=== PATIENT | female | born 1940 | race Caucasian/White ===

== ENCOUNTER 2023-04-12 17:21 | Emergency (ER) | payer MEDICARE, BC, SELFPAY ==
[2023-04-12 17:27] VITALS: BP 152/83; PULSE 89; RESP 20; TEMP 36.4; O2SAT 99; BMI 18.9
[2023-04-12 17:39] LABS: Appearance Urine Clear (Clear); Bilirubin Urine Negative (Negative); Blood Urine Negative (Negative); Color Urine Yellow (Yellow); Glucose Urine Negative (Negative); Ketones Urine Negative (Negative); Leukocyte Esterase Urine Negative (Negative); Nitrite Urine Negative (Negative); Protein Urine Trace (Negative); Specific Gravity Urine >= 1.030 (1.000-1.030); Urobilinogen Urine 0.2 (0.2-1.0); pH Urine 5.5 (5.0-8.5)
[2023-04-12 17:50] LABS: RBC Urine 0-2 (0-2); WBC Urine 0-2 (0-5)
--- NOTE | 2023-04-12 17:59 | CRLHL7_ITS ---
For Patients: As a result of the Century Cures Act, medical imaging exams and procedure reports are released immediately into your electronic medical record. You may view this report before your referring provider. If you have questions, please contact your health care provider. INDICATION: CONFUSION HISTORY: Confusion. COMPARISON: 12/22/2016. 06/20/2014. 06/01/2014. TECHNIQUE: CT of the brain. No intravenous contrast. Coronal/sagittal reconstruction images. FINDINGS: There is diffuse cerebral and cerebellar volume loss. There is no acute intracranial hemorrhage. There is no shift of midline structures. There is no mass effect. No hyperdense MCA sign is seen. Basilar cisterns are patent. No abnormal extra-axial fluid collections. There is chronic sinusitis in the right maxillary antrum. Wall thickening of the right maxillary antrum is present. See series 3, image 8. Pterygoid plates are intact. There is no mastoid effusion. Arterial calcifications of the internal carotid artery. The skull base and calvaria appear intact. No retrobulbar hematoma or mass. IMPRESSION: 1. No acute intracranial hemorrhage, shift of midline structures, or mass effect. 2. Volume loss, which is expected given the patient`s age. 3. No hyperdense MCA sign. Dictated by Sherman Aquino MD @ 04/12/2023 7:04:01 PM Please note that all CT scans at this facility use dose modulation, iterative reconstruction, and/or weight-based dosing when appropriate to reduce radiation dose to as low as reasonably achievable. Dictated by: Sherman Aquino MD @ 04/12/2023 19:04:08 (Electronically Signed)
--- NOTE | 2023-04-12 18:06 | ED_ITS ---
HPI - General Adult General Time Seen by Provider: 18:00 Date Seen: 04/12/23 Chief complaint: Weakness Stated complaint: Possible UTI Time Seen by Provider: 04/12/23 17:21 Source: patient and family (Daughter) Mode of arrival: ambulatory Limitations: no limitations History of Present Illness HPI narrative: Patient is an 82-year-old female presenting to the emergency department for weakness and hip pain. Patient is here with her daughter. They state the patient recently moved into her assisted living facility 3 days ago. They note the patient has had 3 falls in the last month. Daughter states the patient is seemed to be weaker today and had difficulty getting up and down by herself. She has also noticed intermittent confusion for the past few weeks. They were concerned the patient might have a UTI. They have noticed the patient's increased frequency. Patient is denying any dysuria at this time. She does admit hip pain. They have seen the primary care provider for this hip pain and has been told it is bursitis. Without any states she will be here till the 22 of April be seen with her 20/04 but they just wanted to make sure nothing else is going on at this time. Patient denies chest pain, shortness of breath, abdominal pain, diarrhea, constipation, headache, vision changes, nausea, numbness. Related Data Allergies Allergy/AdvReac Type Severity Reaction Status Date / Time No Known Drug Allergies Allergy Verified 04/12/23 17:27 Review of Systems Status of ROS: Reports: 10 or more systems reviewed and unremarkable except as noted in History and below PFSH PFSH Social History Smoking Status: Never smoker Do you use any of these nicotine containing products: None Second hand tobacco smoke exposure: No How often do you have a drink containing alcohol: 4 or more times a week How many standard drinks containing alcohol do you have on a typical day: 1 or 2 How often do you have six or more drinks on one occasion: Never AUDIT-C Alcohol total score: 4 Non-prescribed substance use: denies use service: No Exam Narrative: Exam Narrative: Const: Well-nourished, Well-developed, in mild distress Eyes: PERRL, no conjunctival injection, and symmetrical lids ENMT: Atraumatic external nose and ears. Moist mucous membranes. Neck: Symmetric, trachea midline, No thyromegaly. CVS: RRR, No murmurs or gallops. Peripheral pulses 2+ and equal in all extremities RESP: Unlabored respiratory effort. Clear to auscultation bilaterally. GI: Nontender/Nondistended, No rebound or guarding. MSK:Extremities w/o deformity, Normal Active ROM. Tenderness to palpation over the greater trochanteric bursa Skin: Warm, Dry. No rashes or lesions. Neuro: Normal Muscle tone, No focal neurological deficits. Psych: Awake, Alert, & Oriented x3. Appropriate mood and affect. Const: Vital Signs, click to edit/add: Vital Signs - 24 hr 04/12/23 17:27 Temperature 97.6 F Pulse Rate [Pulse Oximeter] 89 Respiratory Rate 20 Blood Pressure [Ri ght Upper Arm] 152/83 H Pulse Oximetry 99 Oxygen Delivery Me thod Room Air Course Vital Signs Vital signs: Initial Vital Signs Temperature 97.6 F 04/12/23 17:27 Temperature Source Temporal Artery Scan 04/12/23 17:27 Pulse Rate 89 04/12/23 17:27 Pulse Rhythm Regular 04/12/23 17:27 Respiratory Rate 20 04/12/23 17:27 Blood Pressure 152/83 H 04/12/23 17:27 Blood Pressure Mean 106 H 04/12/23 17:27 Blood Pressure Position Supine 04/12/23 17:27 Pulse Oximetry 99 04/12/23 17:27 Oxygen Delivery Method Room Air 04/12/23 17:27 Vital Signs Temperature 97.6 F 04/12/23 17:27 Pulse Rate 89 04/12/23 17:27 Respiratory Rate 20 04/12/23 17:27 Blood Pressure 152/83 H 04/12/23 17:27 Pulse Oximetry 99 04/12/23 17:27 Oxygen Delivery Method Room Air 04/12/23 17:27 Temperature 97.6 F 04/12/23 17:27 Pulse Rate 89 04/12/23 17:27 Respiratory Rate 20 04/12/23 17:27 Blood Pressure 152/83 H 04/12/23 17:27 Pulse Oximetry 99 04/12/23 17:27 Oxygen Delivery Method Room Air 04/12/23 17:27 Medical Decision Making MDM Narrative Medical decision making narrative: Patient is in a 3rd femur signs in the emergency depart for weakness and left hip pain. She has had 3 falls in the past month. Her daughters notes gradual weakness of the past month also. She recently moved into assisted living facility 2 days ago. Her daughter is giving stain with their every day until the 22 of April. The patient has previously told she has bursitis in her hip. The daughters also noted intermittent confusion. They note they have a neurologist appointment scheduled for May 01. Concerning the patient's weakness we will do a full cardiac workup including CBC, CMP, troponin. Urinalysis ordered to check for signs of UTI. Patient has pain right over the greater trochanter which is most likely a sign of trochanteric bursitis. I spoke to the daughter about getting x-rays of the hips to confirm there is no fracture. The daughter does not want to wait for the x-rays to be read. At this point I find this to be reasonable considering pain is directly over the trochanter is most likely greater trochanteric bursitis and the patient is walking well so fracture is a very unlikely at this time. Will do a head CT. EKG showed no concerning abnormalities. Patient's lab work all returned concern no abnormal findings. Urinalysis shows no signs of a UTI. Patient's head CT shows age-related changes but no concerning abnormalities. Patient negative multiple times to go to the bathroom. She is urinating small amounts. We did a postvoid bladder scan which showed an empty urinary bladder. I spoke to the daughter about the which they would like to do at this time. Spoke to rule out possible admission for concern the patient will fall herself at home. The daughter states she feels comfortable taking the patient home at this time and will be with her for at least the next 10 days was able work with assisted living and make sure she is getting all the care that she requires. She states is patient is getting worse she will bring him back to the emergency department. This seems reasonable at this time. I believe the patient's weakness in urinary frequency is more likely related to neurological issues such as dementia and is gradual deconditioning with age. Lab Data Labs: Lab Results 04/12/23 04/12/23 Range/Units 17:30 18:10 WBC 6.53 (4.50-11.00) K/uL RBC 3.99 L (4.00-5.20) m/uL Hgb 13.0 (12.0-16.0) gm/dL Hct 39.3 (33.0-51.0) % MCV 99 (80-100) fL MCH 33 (26-34) pg MCHC 33 (32-36) gm/dL RDW Coeff of Mario 13.0 (11.5-15.5) % Plt Count 203 (140-440) K/uL Neut % (Auto) 56.1 (42.0-72.0) % Lymph % (Auto) 33.5 (20-44) % Coffee % (Auto) 8.7 (0.0-11.0) % Eos % (Auto) 0.9 (0.0-7.0) % Baso % (Auto) 0.6 (0.0-3.0) % Neut # (Auto) 3.66 (1.7-7.0) K/uL Lymph # (Auto) 2.19 (0.90-2.90) K/uL Coffee # (Auto) 0.60 (0.00-0.90) K/UL Eos # (Auto) 0.06 (0.00-0.50) K/uL Baso # (Auto) 0.04 (0.00-0.30) K/uL Abs Immat Gran (auto) 0.01 (0.00-0.30) K/uL Imm/Tot Granulo (auto) 0.2 % Sodium 137 (135-149) mmol/L Potassium 3.8 (3.6-5.1) mmol/L Chloride 105 (96-114) mmol/L Carbon Dioxide 24 (20-32) mmol/L BUN 22 (7-30) mg/dL Creatinine 1.1 (0.5-1.5) mg/dL Estimated Creat Clear 30.52 Estimated GFR 50 ml/min Glucose 90 (60-115) mg/dL Calcium 8.8 (8.4-10.6) mg/dL Total Bilirubin 0.8 (0.1-1.5) mg/dL AST 25 (12-35) U/L ALT 20 (4-35) U/L Alkaline Phosphatase 69 (40-150) U/L Troponin I < 0.01 L (0.01-0.04) ng/mL Total Protein 6.2 (6.0-8.3) g/dL Albumin 3.9 (3.3-5.0) g/dL Urine Color Yellow (Yellow) Urine Appearance Clear (Clear) Urine pH 5.5 (5.0-8.5) Ur Specific [place] >= 1.030 (1.000-1.030) Urine Protein Trace A (Negative) Urine Glucose (UA) Negative (Negative) Urine Ketones Negative (Negative) Urine Blood Negative (Negative) Urine Nitrite Negative (Negative) Urine Bilirubin Negative (Negative) Urine Urobilinogen 0.2 (0.2-1.0) Ur Leukocyte Esterase Negative (Negative) Urine RBC 0-2 (0-2) Urine WBC 0-2 (0-5) Ur Squamous Epith Cells None (None-Few) Urine Bacteria None (None) ECG Data Attestation: I personally reviewed and interpreted this ECG as follows: (Normal sinus rhythm the rate of 82 beats per minute, normal intervals, normal axis, no ST or T-wave abnormalities) Prior ECG tracings: not available for review Discharge Plan Discharge Clinical Impression: Weakness Greater trochanteric bursitis Qualifiers: Laterality: left Qualified Code(s): M70.62 - Trochanteric bursitis, left hip Patient Disposition: Home w/ Parent or Adult Condition: Stable Instructions: Hip Bursitis (ED), How to Transfer a Person Safely (DC) Additional Instructions: Follow-up with your daughters point being to have scheduled on May 01. Take ibuprofen and Tylenol for the patient's bursitis. There is no signs of infection at this time and is fully emptying her bladder. I believe her fixation on having to urinate is related to neurological decline with aging. Return for new or worsening symptoms. Follow Up/Referrals: Rani Barillas MD [Staff Physician] - Stand Alone Forms: [employer] Info Instructions
[2023-04-12 18:17] LABS: Basophils Absolute Auto 0.04 K/uL (0.00-0.30); Basophils Percent Auto 0.6 % (0.0-3.0); Eosinophils Absolute Auto 0.06 K/uL (0.00-0.50); Eosinophils Percent Auto 0.9 % (0.0-7.0); Hematocrit 39.3 % (33.0-51.0); Immature Granulocytes Abs Auto 0.01 K/uL (0.00-0.30); Immature Granulocytes Pct Auto 0.2 %; Lymphocytes Absolute Auto 2.19 K/uL (0.90-2.90); Lymphocytes Percent Auto 33.5 % (20-44); Mean Corpuscular HGB Conc 33 gm/dL (32-36); Mean Corpuscular Hemoglobin 33 pg (26-34); Mean Corpuscular Volume 99 fL (80-100); Monocytes Percent Auto 8.7 % (0.0-11.0); Neutrophils Absolute Auto 3.66 K/uL (1.7-7.0); Neutrophils Percent Auto 56.1 % (42.0-72.0); Platelet Count* 203 K/uL (140-440); Red Blood Count 3.99 m/uL (4.00-5.20); White Blood Count* 6.53 K/uL (4.50-11.00)
[2023-04-12 18:34] LABS: Slide Review Reflex No
[2023-04-12 18:36] LABS: Albumin* 3.9 g/dL (3.3-5.0); Chloride* 105 mmol/L (96-114); Potassium* 3.8 mmol/L (3.6-5.1); Sodium* 137 mmol/L (135-149)
[2023-04-12 18:39] LABS: Alanine Aminotransferase* 20 U/L (4-35); Alkaline Phosphatase* 69 U/L (40-150); Aspartate Amino Transferase* 25 U/L (12-35); Bilirubin Total* 0.8 mg/dL (0.1-1.5); Blood Urea Nitrogen* 22 mg/dL (7-30); Carbon Dioxide* 24 mmol/L (20-32); Creatinine* 1.1 mg/dL (0.5-1.5); Est. Creatinine Clearance* 30.52; Estimated Glomerular Filt Rate 50 ml/min; Glucose* 90 mg/dL (60-115); Total Protein* 6.2 g/dL (6.0-8.3)
[2023-04-12 18:40] LABS: Calcium* 8.8 mg/dL (8.4-10.6)
[2023-04-12 18:53] LABS: Troponin I* < 0.01 ng/mL (0.01-0.04)
== END 2023-04-12 19:37 | disposition home or self-care (01) ==
PROVIDERS: Emergency Provider Student in an Organized Health Care Education/Training Program; PCP Family Medicine
DX: S09.8XXA Other specified injuries of head, initial encounter (principal); S01.21XA Laceration without foreign body of nose, initial encounter; W18.30XA Fall on same level, unspecified, initial encounter; Y92.009 Unspecified place in unspecified non-institutional (private) residence as the place of occurrence of the external cause
CPT/HCPCS: 36415; 70450; 80053; 81001; 84484; 85025; 93005; 99283; 99284; 99285

== ENCOUNTER 2023-04-25 15:18 | Emergency (ER) | payer MEDICARE, BC, SELFPAY ==
[2023-04-25 15:25] VITALS: BP 128/75; PULSE 80; RESP 18; TEMP 36.6; O2SAT 98; BMI 18.9
--- NOTE | 2023-04-25 15:50 | CRLHL7_ITS ---
For Patients: As a result of the Cures Act, medical imaging exams and procedure reports are released immediately into your electronic medical record. You may view this report before your referring provider. If you have questions, please contact your health care provider. INDICATION: FALL. FACIAL LACERATIONS TECHNIQUE: CT maxillofacial without contrast. COMPARISON: None. FINDINGS: Dental amalgam streak artifact limits evaluation of adjacent structures. Facial bones: No fractures or bone lesions. Specifically the nasal bones, temporomandibular joints, maxilla and mandible appear intact. Orbits and globes: Unremarkable. Globes are intact. No sign of intraorbital hemorrhage or emphysema. Sinuses: Redemonstrated chronic mucosal thickening involving the right maxillary sinus with chronic periosteal thickening of the maxillary arenas. Hyperdense material within the right maxillary sinus is unchanged likely related to inspissated secretions and/or chronic fungal colonization. Mild chronic mucosal thickening of the ethmoid air cells. Soft tissues: Midline frontal scalp and paranasal soft tissue inflammation and subcutaneous emphysema. Small right pre maxillary soft tissue contusion/hematoma. IMPRESSION: 1. No evidence of facial fracture. 2. Midline frontal scalp and paranasal soft tissue inflammation and subcutaneous emphysema. Small right pre maxillary soft tissue contusion/hematoma. 3. Chronic right maxillary sinusitis. Please note that all CT scans at this facility use dose modulation, iterative reconstruction, and/or weight-based dosing when appropriate to reduce radiation dose to as low as reasonably achievable. Dictated by Donaldo Raymond MD @ 04/25/2023 5:45:11 PM (Electronically Signed)
--- NOTE | 2023-04-25 15:50 | CRLHL7_ITS ---
For Patients: As a result of the Century Cures Act, medical imaging exams and procedure reports are released immediately into your electronic medical record. You may view this report before your referring provider. If you have questions, please contact your health care provider. INDICATION: FALL. FACIAL LACERATIONS TECHNIQUE: Head CT without contrast. COMPARISON: CT head April 12, 2023 FINDINGS: CSF spaces: Mild global parenchymal volume loss with associated ex vacuo dilatation of the supratentorial ventricles. Brain parenchyma and extra-axial spaces: There are nonspecific low attenuation white matter changes consistent with chronic microvascular disease. No sign of intracranial hemorrhage, or midline shift. Skull base and calvarium: Redemonstrated chronic mucosal thickening involving the right maxillary sinus with chronic periosteal thickening of the maxillary arenas. Hyperdense material within the right maxillary sinus is unchanged likely related to inspissated secretions and/or chronic fungal colonization. The visualized orbits are grossly unremarkable. No skull fractures. Midline frontal scalp and paranasal soft tissue inflammation subcutaneous emphysema. Facial bones better visualized on same-day CT facial. IMPRESSION: No evidence of intracranial hemorrhage or skull fracture. Midline frontal/paranasal soft tissue contusion/inflammation is subcutaneous emphysema. Facial bones better visualized on same-day CT maxillofacial. Please note that all CT scans at this facility use dose modulation, iterative reconstruction, and/or weight-based dosing when appropriate to reduce radiation dose to as low as reasonably achievable. Dictated by Donaldo Raymond MD @ 04/25/2023 5:39:44 PM (Electronically Signed)
--- NOTE | 2023-04-25 15:50 | CRLHL7_ITS ---
For Patients: As a result of the Cures Act, medical imaging exams and procedure reports are released immediately into your electronic medical record. You may view this report before your referring provider. If you have questions, please contact your health care provider. INDICATION: Fall, neck pain TECHNIQUE: CT cervical spine without contrast. COMPARISON: None. FINDINGS: Vertebrae: Preserved cervical lordosis. Degenerative anterolisthesis of C6 on C7 and C7 on T1. There are no fractures or suspicious bony lesions. Discs and facet joints: There are diffuse degenerative changes in the disc spaces. Severe multilevel facet arthropathy most notably on the left resulting in multilevel neural femoral stenosis. Moderate severe left neural foraminal stenosis at C2-C3, severe left C3-C4, moderate bilateral C4-C5 a probable severe left at C5-C6. Positioning limits evaluation for neural foraminal stenosis at C6-C7. Moderate degenerative arthrosis at C1-C2. Extraspinal findings: Paraspinous soft tissues are unremarkable. IMPRESSION: 1. No sign of acute cervical spine fracture. 2. Multilevel degenerative spondylosis. Please note that all CT scans at this facility use dose modulation, iterative reconstruction, and/or weight-based dosing when appropriate to reduce radiation dose to as low as reasonably achievable. Dictated by Donaldo Raymond MD @ 04/25/2023 5:55:58 PM (Electronically Signed)
--- NOTE | 2023-04-25 16:11 | ED.HEATRA ---
HPI - Head Injury General Date Seen: 04/25/23 Chief complaint: Head Injury/Pain Stated complaint: fall face lac Time Seen by Provider: 04/25/23 15:24 Source: patient Mode of arrival: ambulatory Limitations: no limitations History of Present Illness HPI Narrative: This very nice lady presents here with a fall, she fell at home, he fell forward with her glasses on, hitting her face, she has no loss of consciousness, there is no vomiting, she is not on any anticoagulants, but feels slightly nauseous. He also has pain around her no nasal region, is also some mild pain in her neck. She initially told the nurse that she had pain in her low back, but when she gets up and moves around she thinks it might be just from sitting for so long. The fall occurred approximately an hour before being seen. This occurred at her place of residence. MD Complaint: head injury, head pain and fall Mechanism of Injury: fall Place: home Loss of Consciousness: no Location of injury: frontal Radiation: none Other Injuries: laceration Associated symptoms: denies other symptoms Related Data Home Medications Medication Instructions Recorded Confirmed No Known Home Medications 04/25/23 04/25/23 Allergies Allergy/AdvReac Type Severity Reaction Status Date / Time No Known Drug Allergies Allergy Verified 04/12/23 17:27 Review of Systems Status of ROS: Reports: 10 or more systems reviewed and unremarkable except as noted in History and below [facility] Social History Smoking Status: Never smoker Do you use any of these nicotine containing products: None Second hand tobacco smoke exposure: No How often do you have a drink containing alcohol: 4 or more times a week How many standard drinks containing alcohol do you have on a typical day: 1 or 2 How often do you have six or more drinks on one occasion: Never AUDIT-C Alcohol total score: 4 Non-prescribed substance use: denies use service: No Exam Narrative: Exam Narrative: On examination in room 3, she is seen with her granddaughter. Pupils are equal round reactive to light she tracks normally with absence of nystagmus, her TMs are normal, her range of motion of her neck is from 8-15 cm. Side flexion is 10?, rotation is approximately 20?. She has no palpable tenderness noted over C-spine, small laceration is noted of the bridge of her nose on the left side. There is some swelling of her nasal. No midfacial tenderness mouth opening is normal, cranial nerves 3-12 are normal, chest is clear heart sounds are normal, no palpable pain is noted over her L-spine or thoracic spine on palpation percussion. She moves all extremities independently and well, with a little less movement of her left upper extremity which she says is a chronic problem. She is able to stand for me. Const: Vital Signs, click to edit/add: Vital Signs - 24 hr 04/25/23 15:25 Temperature 97.9 F Pulse Rate [Right Pulse Oximeter] 80 Respiratory Rate 18 Blood Pressure [Ri ght Upper Arm] 128/75 Pulse Oximetry 98 Oxygen Delivery Me thod Room Air Documenting provider has reviewed patient's vital signs: yes Course Course Hospital Course: Patient's CTs were reviewed by myself showing no evidence of acute issues, there was some opacification her sinuses, which is appears to be a chronic issue. I was able to after the let, glue her 2 small nasal lacerations across the bridge of her nose and a little bit further down on the left side. This was uncomplicated with no complications. Her lower back was given her some problems, I offered to do an x-ray, but she decided than knee and she did not want to do this, but will return her see her primary if ongoing pain. Vital Signs Vital signs: Initial Vital Signs Temperature 97.9 F 04/25/23 15:25 Temperature Source Temporal Artery Scan 04/25/23 15:25 Pulse Rate 80 04/25/23 15:25 Respiratory Rate 18 04/25/23 15:25 Blood Pressure 128/75 04/25/23 15:25 Blood Pressure Mean 92 04/25/23 15:25 Blood Pressure Position Sitting 04/25/23 15:25 Pulse Oximetry 98 04/25/23 15:25 Oxygen Delivery Method Room Air 04/25/23 15:25 Vital Signs Temperature 97.9 F 04/25/23 15:25 Pulse Rate 80 04/25/23 15:25 Respiratory Rate 18 04/25/23 15:25 Blood Pressure 128/75 04/25/23 15:25 Pulse Oximetry 98 04/25/23 15:25 Oxygen Delivery Method Room Air 04/25/23 15:25 Temperature 97.9 F 04/25/23 15:25 Pulse Rate 80 04/25/23 15:25 Respiratory Rate 18 04/25/23 15:25 Blood Pressure 128/75 04/25/23 15:25 Pulse Oximetry 98 04/25/23 15:25 Oxygen Delivery Method Room Air 04/25/23 15:25 MDM - Head Injury MDM Narrative Medical decision making narrative: Life-threatening differential diagnosis is considered include: Subarachnoid hemorrhage, subdural hemorrhage, epidural hemorrhage. Other differential diagnosis considered include concussion, closed head injury, or neck fracture. Medical Records Attestation: I reviewed the patient's medical records. Imaging Data CT scan - head: Attestation: I have reviewed the pertinent imaging results. Radiologist's impression: Patient: EMMANUEL LERMA Facility: [facility] Site . Site : 1940 Study: CT Head -04/25/2023 4:24:32 PM Ordering Physician: Mervat Omer Final Report: INDICATION: FALL. FACIAL LACERATIONS TECHNIQUE: Head CT without contrast. COMPARISON: CT head April 12, 2023 FINDINGS: CSF spaces: Mild global parenchymal volume loss with associated ex vacuo dilatation of the supratentorial ventricles. Brain parenchyma and extra-axial spaces: There are nonspecific low attenuation white matter changes consistent with chronic microvascular disease. No sign of intracranial hemorrhage, or midline shift. Skull base and calvarium: Redemonstrated chronic mucosal thickening involving the right maxillary sinus with chronic periosteal thickening of the maxillary arenas. Hyperdense material within the right maxillary sinus is unchanged likely related to inspissated secretions and/or chronic fungal colonization. The visualized orbits are grossly unremarkable. No skull fractures. Midline frontal scalp and paranasal soft tissue inflammation subcutaneous emphysema. Facial bones better visualized on same-day CT facial. IMPRESSION: No evidence of intracranial hemorrhage or skull fracture. Midline frontal/paranasal soft tissue contusion/inflammation is subcutaneous emphysema. Facial bones better visualized on same-day CT maxillofacial. Please note that all CT scans at this facility use dose modulation, iterative reconstruction, and/or weight-based dosing when appropriate to reduce radiation dose to as low as reasonably achievable. Dictated by Donaldo Raymond MD @ 04/25/2023 5:39:44 PM (Electronic Signature) Patient: EMMANUEL LERMA Facility: [facility] . Site : 1940 Study: CT Facial WITHOUT-04/25/2023 4:23:15 PM Ordering Physician: Mervat Omer Final Report: INDICATION: FALL. FACIAL LACERATIONS TECHNIQUE: CT maxillofacial without contrast. COMPARISON: None. FINDINGS: Dental amalgam streak artifact limits evaluation of adjacent structures. Facial bones: No fractures or bone lesions. Specifically the nasal bones, temporomandibular joints, maxilla and mandible appear intact. Orbits and globes: Unremarkable. Globes are intact. No sign of intraorbital hemorrhage or emphysema. Sinuses: Redemonstrated chronic mucosal thickening involving the right maxillary sinus with chronic periosteal thickening of the maxillary arenas. Hyperdense material within the right maxillary sinus is unchanged likely related to inspissated secretions and/or chronic fungal colonization. Mild chronic mucosal thickening of the ethmoid air cells. Soft tissues: Midline frontal scalp and paranasal soft tissue inflammation and subcutaneous emphysema. Small right pre maxillary soft tissue contusion/hematoma. IMPRESSION: 1. No evidence of facial fracture. 2. Midline frontal scalp and paranasal soft tissue inflammation and subcutaneous emphysema. Small right pre maxillary soft tissue contusion/hematoma. 3. Chronic right maxillary sinusitis. Please note that all CT scans at this facility use dose modulation, iterative reconstruction, and/or weight-based dosing when appropriate to reduce radiation dose to as low as reasonably achievable. Dictated by Donaldo Raymond MD @ 04/25/2023 5:45:11 PM (Electronic Signature) Patient: EMMANUEL LERMA Facility: [facility] . Site : 1940 Study: CT Spine Cervical -04/25/2023 4:22:35 PM Ordering Physician: Mervat Omer Final Report: INDICATION: Fall, neck pain TECHNIQUE: CT cervical spine without contrast. COMPARISON: None. FINDINGS: Vertebrae: Preserved cervical lordosis. Degenerative anterolisthesis of C6 on C7 and C7 on T1. There are no fractures or suspicious bony lesions. Discs and facet joints: There are diffuse degenerative changes in the disc spaces. Severe multilevel facet arthropathy most notably on the left resulting in multilevel neural femoral stenosis. Moderate severe left neural foraminal stenosis at C2-C3, severe left C3-C4, moderate bilateral C4-C5 a probable severe left at C5-C6. Positioning limits evaluation for neural foraminal stenosis at C6-C7. Moderate degenerative arthrosis at C1-C2. Extraspinal findings: Paraspinous soft tissues are unremarkable. IMPRESSION: 1. No sign of acute cervical spine fracture. 2. Multilevel degenerative spondylosis. Please note that all CT scans at this facility use dose modulation, iterative reconstruction, and/or weight-based dosing when appropriate to reduce radiation dose to as low as reasonably achievable. Dictated by Donaldo Raymond MD @ 04/25/2023 5:55:58 PM (Electronic Signature) Discharge Plan Discharge Clinical Impression: Closed head injury, Facial laceration Patient Disposition: Home w/ Parent or Adult Condition: Stable Instructions: Laceration (DC), Head Injury (DC), Skin Adhesive Care (ED) Additional Instructions: Home rest Tylenol, please do not apply any antibiotic ointment to the glue areas of your laceration, return if nausea vomiting or other worrisome signs and symptoms with head injury occur. Tylenol 1 g up to 3 times a day will be very helpful. Activity Level: Light activity Prescriptions: No Action No Known Home Medications Follow Up/Referrals: Vivian Ko DO [Primary Care Provider] - Stand Alone Forms: [employer] Info Instructions
[2023-04-25] MEDS: LIDOCAINE/EPINEP/TETRACAINE 3 ML GEL..ML. TOPICAL (16:18)
[2023-04-25] MEDS: ACETAMINOPHEN 500 MG TABLET 1000 MG PO (16:18)
[2023-04-25 16:30] VITALS: BP 162/90; PULSE 82; RESP 16; O2SAT 100
[2023-04-25 17:00] VITALS: BP 140/77; PULSE 89; RESP 16; O2SAT 98
[2023-04-25 17:30] VITALS: BP 166/94; PULSE 89; RESP 16; O2SAT 99
[2023-04-25 18:00] VITALS: BP 158/83; PULSE 81; RESP 16; O2SAT 99
== END 2023-04-25 18:28 | disposition home or self-care (01) ==
PROVIDERS: Emergency Provider Family Medicine; PCP Family Medicine
DX: S01.21XA Laceration without foreign body of nose, initial encounter (principal); W01.10XA Fall on same level from slipping, tripping and stumbling with subsequent striking against unspecified object, initial encounter
CPT/HCPCS: 12011; 70450; 70486; 72125; 99284; 99285; A9270

== ENCOUNTER 2024-06-18 04:25 | Outpatient (CLI) | payer MEDICARE, SELFPAY ==
--- OUTSIDE RECORDS SUMMARY | 2024-06-19 08:41 | XMS_ITS | Clinical Summary ---
Author Organization [facility] Address [place], [place] [address] Care Team Providers Care Centrifugal Supervisor Name Role Phone Unavailable Primary Care Provider [...] Take 1 tablet by mouth. 08/22/2008 Active Zoknu-0-NKU-EPA-Fish Oil (FISH OIL) 1,000 mg (120 mg-180 [...] (09/22/2022): Added automatically from request for surgery [id number] Dementia without behavioral disturbance 12/28/19 21 Overview [...] stenosis of major cervical arteries. Done at [place]. Transient ischemic attack 06/01/2014 Overview (09/22/2022): 2014, takes plavix Unspecified hypothyroidism 10/06/2012 Sleep disorder 09/27/2010 Malignant neoplasm of breast (female), unspecifi ed site 11/12/2007 Overview (11/12/2007): left breast, infiltrating lobular carcinoma, ER +, [place] -, S/P left simple mastectomy 04/2007 on [...] PF (Flu Clinic Only) 07/10/2017 COVID-19 vaccine (Gen110 NTApos Therapy 30mcg/0.3mL) PF, MDV 12/03/2020,11/07/2020 DTaP 05/14/2006 Influenza [...] Documents on File Type Date Recorded Patient Mounter Expl anation POLST 04/15/2023
== END 2024-06-18 04:26 | disposition home or self-care (01) ==
LOC: AMB 06-19 08:40
PROVIDERS: PCP Family Medicine; Visit Provider Family Medicine
DX: S09.90XA Unspecified injury of head, initial encounter (principal); W18.30XA Fall on same level, unspecified, initial encounter; Y92.009 Unspecified place in unspecified non-institutional (private) residence as the place of occurrence of the external cause
CPT/HCPCS: A0425; A0427

== ENCOUNTER 2024-06-18 04:37 | Emergency (ER) | payer MEDICARE, SELFPAY ==
[2024-06-18 04:40] VITALS: BP 155/92; PULSE 81; RESP 20; TEMP 36.9; O2SAT 99
--- NOTE | 2024-06-18 04:51 | CRLHL7_ITS ---
For Patients: As a result of the Cures Act, medical imaging exams and procedure reports are released immediately into your electronic medical record. You may view this report before your referring provider. If you have questions, please contact your health care provider. INDICATION: Head injury, fall. COMPARISON: 04/25/2023 TECHNIQUE: CT of the brain / head without intravenous contrast. Multiplanar axial, coronal, and sagittal reformats were reconstructed. FINDINGS: Minimal patient motion artifact. No intracranial hemorrhage. Moderate parenchymal volume loss is similar. No acute or subacute cortically based infarct. Scattered white matter hypodensities may be related to chronic microvascular ischemia. No mass or mass effect. Mildly dilated ventricles appear similar to the previous exam. Largely due to ex vacuo dilatation in the setting of cerebral parenchymal volume loss. No skull fractures. No worrisome focal bone lesion. Chronic right maxillary sinusitis. Bilateral mastoid effusions. IMPRESSION: 1. No intracranial hemorrhage or acute traumatic findings. 2. Bilateral mastoid effusions. Please note that all CT scans at this facility use dose modulation, iterative reconstruction, and/or weight-based dosing when appropriate to reduce radiation dose to as low as reasonably achievable. Dictated by Alise Sebastian MD @ 06/18/2024 5:32:25 AM (Electronically Signed)
--- OUTSIDE RECORDS SUMMARY | 2024-06-18 05:02 | XMS_ITS | Clinical Summary ---
Author Organization [facility] Address [place], [place] [address] Care Team Providers Care Ballast Regulator Operator Name Role Phone Unavailable Primary Care Provider Unavailabl e Allergies Active Allergy Reactions Criticality Noted Date Comments Adhesive Hives 11/30/2014 Amoxicillin-Pot Clavulanate Rash Medium 04/23/20 11 Atorvastatin Myalgia 07/11/2015 Glucosamine Rash 04/14/2007 Latex Rash 11/30/2014 Oxycodone Nausea And Vomiting 05/07/2007 Sulfa (Sulfonamide Antibiotics) Hives,Edema 04/2007 Medications Medication Sig Dispensed Refills Start Date End Date Status acetaminophen (TYLENOL) 325 mg tablet Take 2 tablets by mouth. 02/28/2014 Active multivitamin (MVI) tablet Take 1 tablet by mouth. 08/22/2008 Active Pzhtm-0-WVZ-EPA-Fish Oil (FISH OIL) 1,000 mg (120 mg-180 mg) cap Take 1 capsule by mouth once daily. 02/22/2009 Active olopatadine (PATANOL) 0.1 % ophthalmic solutionIndications:I tchy eyes Place 1 Drop into both eyes 2 times daily. 5 mL 11 11/04/2021 Active rosuvastatin (CRESTOR) 5 mg tabletIndications:His tory of CVA (cerebrovascular accident) TAKE 1 TABLET BY MOUTH ONCE WEEKLY DIRECTED 12 Tablet 3 05/08/2022 Active clopidogreL (PLAVIX) 75 mg tabletIndications:His tory of CVA (cerebrovascular accident) Take 1 Tablet (75 mg) by mouth once daily. 90 Tablet 3 05/08/2022 Active WalkerIndications:Art hritis of right hip,Poor balance,At high risk for falls Walker with 2 wheels,seat,hand brakes for home use. Diagnosis: right hip arthritis, poor balance at risk of falls. For home use. Length of need: 99. 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, peripheral 09/22/2022 Overview (09/22/2022): numbness and tingling in both hands and feet Fatigue 02/07/2021 Personal history of other malignant neoplasm of kidney 02/07/2021 Personal history of malignant neoplasm of bladde r 01/11/2021 Overview (09/22/2022): Added automatically from request for surgery [id number] Dementia without behavioral disturbance 12/28/19 21 Overview (05/08/2022): SLUMS 12/2020 = 14 SLUMS 05/08/2022 = 6 Arthralgia 05/23/2019 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 Mri showing acute infarction of the left coronary, left posterior body of the caudate, and a small area of the posterolateral limb of the left internal capsule. 2. A few scattered foci of nonspecific T2 hyperintensity in the periventricular white matter likely related to small vessel ischemic disease. No stenosis in major cerebral arteries. Also no stenosis of major cervical arteries. Done at [place]. Transient ischemic attack 06/01/2014 Overview (09/22/2022): 2014, takes plavix Unspecified hypothyroidism 10/06/2012 Sleep disorder 09/27/2010 Malignant neoplasm of breast (female), unspecifi ed site 11/12/2007 Overview (11/12/2007): left breast, infiltrating lobular carcinoma, ER +, [place] -, S/P left simple mastectomy 04/2007 on arimidex Personal history of malignant neoplasm of kidney (V10.52) 11/12/2007 Overview (11/11/2013): right nephrectomy 1999. Discussed rare use of NSAID probably ok. Recommend sulindac if needs longer term Trinity Villaseñor M.D. 11/11/2013 8:12 AM Other and unspecified hyperlipidemia 11/12/2007 Benign neoplasm of colon 11/12/2007 Overview (11/12/2007): tubular adenoma 2002 Malignant neoplasm of bladder, part unspecified 03/05/2007 Immunizations Name Administration Dates Next Due AMB INFLUENZA IIV3 (AGE 65+ YRS) PF (Flu Clinic Only) 07/10/2017 COVID-19 vaccine ([employer] NTReading Rainbow 30mcg/0.3mL) PF, MDV 12/03/2020,11/07/2020 DTaP 05/14/2006 Influenza Virus, Unspecified 06/25/2018, 07/10/2017,08/25/2016,2015,08/19/2015,08/19/2015,07/23/2015,1 (Deferred: Patient Refused),07/13/2014,07/12/2013,09/01/20 12,06/28/2012,06/28/2012,07/29/2011,,07/16/2010,06/20/2009, 9,07/29/2007,07/29/2007,07/29/2004,06/28,07/11/2004 Influenza, High-dose Inactivated 019,07/23/2015,07/13/2014,2012 Influenza, High-dose Quadriv alent Inactivated 08/06/2021 Influenza, IIV3 (Age 6-35 mos) 07/29/2011 Influenza, IIV3 (Age >=3 years) 07/13/20 14,07/12/2013,09/01/2012,2010,07/16/2010,06/20/2009,07/29/2007,1 09/28/2003,07/11/2004 Influenza, IIV4 08/25/2016 Influenza, Inactivated AIIV4 (Age 65+ Years) Preserv Free 08/29/2022,06/08/2020 Influenza, Inactivated IIV3 (Age 65+ Years) Preserv Free 06/25/2018 Pneumococcal Poly,23-Valent (Pneumovax) 05/22/2008 Pneumococcal conj 13-Valent (Prevnar 13) 10/26/2014 TD, UNSPECIFIED 09/28/1999 Td (Age >=7 Years) 07/22/2012(Deferred: Patient Refused),09/28/1999 Tdap 02/04/2017,05/14/2006 Zoster (Zostavax-ZVL, live) 12/13/2008 Family History Medical History Relation Name Comments Psychiatric illness Father Cancer-breast Maternal Grandmother Stroke Mother Cancer-breast Paternal Grandmother Other Sister Relation Name Status Comments Father Maternal Grandmother Mother Paternal Grandmother Sister Alive Social History Tobacco Use Types Packs/Day Years Used Date Smoking Tobacco: Never Smokeless Tobacco: Never Tobacco Cessation:Counseling Given: Yes Alcohol Use Standard Drinks/Week Comments Yes 0 (1 standard drink = 0.6 oz pur e alcohol) 1 glass of wine daily PHQ-2 Answer Date Recorded PHQ-2 TOTAL SCORE 0 05/08/2022 Social Connections Answer Date Recorded Frequency of Communication with Friends and Fami ly Not on file 05/11/2023 Financial Resource Strain Answer Date R ecorded Difficulty of Paying Living Expenses 3 05/08/2022 Difficulty of Paying Living Expenses Not on file 05/08/2022 Food Insecurity Answer Date Recorded Worried About Running Out of Food in the Last Ye ar 1 05/08/2022 Transportation Needs Answer Date Record ed Lack of Transportation (Medical) 1 05/08/2022 Housing Stability Answer Date Recorded Unable to Pay for Housing in the Last Year 1 05/08/2022 Sex and Gender Information Value Date Recorded Sex Assigned at Not on file Gender Identity Not on file Sexual Orientation Not on file Obstetrics History Para Term AB IAB SAB Ectopic Multiple Livin g Live Births 2 2 Date Outcome GA Total Labor Labor/2nd/3rd Weight Sex Type Anes PTL Cassie A1 A5 Name Clin Last Filed Vital Signs Vital Sign Reading Time Taken Comments Blood Pressure 134/84 12/29/2022 10:37 AM CDT Pulse 91 12/29/2022 10:37 AM CDT Temperature 36.9 ??C (98.4 ??F) 12/27/2020 9:53 AM CD T Respiratory Rate - - Oxygen Saturation 98% 12/29/2022 10:37 AM CDT Inhaled Oxygen Concentration - - Weight 52.2 kg (115 lb) 12/29/2022 10:37 AM CDT Height 160 cm (5' 3) 05/08/2022 10:28 AM CDT Body Mass Index 20.37 05/08/2022 10:28 AM CDT Plan of Treatment Health Maintenance Due Date Last Done Comments RSV vaccine for adults or (1 - 1-dose 60+ series) 1999 Medicare Wellness for age 65+ 2004 Zoster (shingles) series for age 50+ (1 of 2) 02/07/2009 12/13/2008 BMI (ht and wt on same day) for age 18+ 05/08/2023 05/08/2022, 06/08/2020, 01/21/2019, Additional history exists COVID-19 vaccine series ( season) 2024 06/14/2021, 12/03/2020, 11/07/2020 Influenza for age 65+ 05/29/2024 08/29/2022 , 08/06/2021, 06/08/2020, Additional history exists Tetanus booster 02/04/2027 02/04/2017, 04/28, 09/28/1999, Additional history exists DEXA/DXA scan for age 65+ Completed 2010 (Completed outside of [facility]) Pneumococcal series for age 65+ Completed , 05/22/2008 Tdap Completed 02/04/2017, 05/14/2006 Advance Directives Documents on File Type Date Recorded Patient Carbon Brush Maker Expl anation POLST 04/15/2023
[2024-06-18 06:50] VITALS: BP 145/84; PULSE 79; RESP 20; TEMP 36.9; O2SAT 99
[2024-06-18 06:52] VITALS: BP 145/84; PULSE 79; RESP 20; TEMP 36.9
--- NOTE | 2024-06-19 11:34 | ED.GENADULT ---
HPI - General Adult General Chief complaint: Head Injury/Pain Stated complaint: fall Time Seen by Provider: 06/18/24 04:50 History of Present Illness HPI narrative: CC: Head Injury pt. had fall tonight, unwitnessed. swelling to back of head. unknown LOC. 83-year-old woman brought by EMS to the emergency department following a fall at dementia unit of [facility]. Concerns are of potential head injury. Marichuy does not offer useful information on interview. She hollers and complains of pain where ever touched. Unfortunately dementia leading to being generally disagreeable Related Data Home Medications ?Medication ?Instructions ?Recorded ?Confirmed escitalopram oxalate 5 mg tablet 5 mg PO DAILY 06/18/24 06/18/24 lorazepam 0.5 mg tablet 0.5 mg PO DAILY 06/18/24 06/18/24 Allergies Allergy/AdvReac Type Severity Reaction Status Date / Time adhesive tape AdvReac Verified 06/18/24 04:44 amoxicillin [From Augmentin] AdvReac Verified 06/18/24 04:44 atorvastatin AdvReac Verified 06/18/24 04:44 clavulanic acid AdvReac Verified 06/18/24 04:44 [From Augmentin] glucosamine AdvReac Verified 06/18/24 04:44 latex AdvReac Verified 06/18/24 04:44 oxycodone AdvReac Verified 06/18/24 04:44 Sulfa (Sulfonamide AdvReac Verified 06/18/24 04:44 Antibiotics) Review of Systems Status of ROS: Reports: 6 or more systems reviewed and unremarkable except as noted in History and below [facility] Medical History Hypothyroidism, unspecified ?E03.9 - Hypothyroidism, unspecified (ICD-10) Hyperlipidemia, unspecified ?E78.5 - Hyperlipidemia, unspecified (ICD-10) Malignant neoplasm of unspecified site of unspecified female breast ?C50.919 - Malignant neoplasm of unspecified site of unspecified female breast (ICD-10) Personal history of malignant neoplasm of bladder ?Z85.51 - Personal history of malignant neoplasm of bladder (ICD-10) Polyneuropathy, unspecified ?G62.9 - Polyneuropathy, unspecified (ICD-10) Diverticulosis of intestine, part unspecified, without perforation or abscess without bleeding ?K57.90 - Diverticulosis of intestine, part unspecified, without perforation or abscess without bleeding (ICD-10) Anxiety disorder, unspecified ?F41.9 - Anxiety disorder, unspecified (ICD-10) Personal history of transient ischemic attack (TIA), and cerebral infarction without residual deficits ?Z86.73 - Personal history of transient ischemic attack (TIA), and cerebral infarction without residual deficits (ICD-10) Unspecified dementia, unspecified severity, without behavioral disturbance, psychotic disturbance, mood disturbance, and anxiety ?F03.90 - Unspecified dementia, unspecified severity, without behavioral disturbance, psychotic disturbance, mood disturbance, and anxiety (ICD-10) Social History Smoking Status: Never smoker Do you use any of these nicotine containing products: None Second hand tobacco smoke exposure: No How often do you have a drink containing alcohol: 4 or more times a week How many standard drinks containing alcohol do you have on a typical day: 1 or 2 How often do you have six or more drinks on one occasion: Never AUDIT-C Alcohol total score: 4 Non-prescribed substance use: denies use service: No Exam Narrative: Exam Narrative: Argumentative. Does try to pinch care providers. Does not appear to be in distress other than does not appear to want cares. Is breathing easily. Head does have some prominence at the occiput left greater than right. I do not see stapling. Cranial nerves 2-12 to be intact. She is moving all extremities without difficulty. Checking hips she complains of pain however with good strength resists rotation. There is a light abrasion at the right knee though I am not convinced that this would have occurred in the last 24 hours. No extremity edema. Lungs are clear. Does not cry a specifically to pain to palpation of the back. Moderate kyphosis of the upper spine. Neck appears to be nontender. Abdomen is soft the. Yells out during this exam but not reliably to palpation. Heart in regular rate and rhythm. Const: Documenting provider has reviewed patient's vital signs: yes Course Vital Signs Vital signs: Initial Vital Signs Temperature 98.5 F 06/18/24 04:40 Temperature Source Temporal Artery Scan 06/18/24 04:40 Pulse Rate 81 06/18/24 04:40 Respiratory Rate 20 06/18/24 04:40 Blood Pressure 155/92 H 06/18/24 04:40 Blood Pressure Mean 113 H 06/18/24 04:40 Blood Pressure Position Supine 06/18/24 04:40 Pulse Oximetry 99 06/18/24 04:40 Oxygen Delivery Method Room Air 06/18/24 04:40 Vital Signs Temperature 98.5 F 06/18/24 04:40 Pulse Rate 81 06/18/24 04:40 Respiratory Rate 20 06/18/24 04:40 Blood Pressure 155/92 H 06/18/24 04:40 Pulse Oximetry 99 06/18/24 04:40 Oxygen Delivery Method Room Air 06/18/24 04:40 Temperature 98.5 F 06/18/24 06:52 Pulse Rate 79 06/18/24 06:52 Respiratory Rate 20 06/18/24 06:52 Blood Pressure 145/84 H 06/18/24 06:52 Pulse Oximetry 99 06/18/24 06:50 Oxygen Delivery Method Room Air 06/18/24 06:50 Medical Decision Making MDM Narrative Medical decision making narrative: Certainly can scan head. Is not anticoagulated. Particularly given that unable to or unwilling to communicate needs or pains clearly. Swelling on the back of the head might be in part physiologic but I think really hard to know. Does not appear to have sustained any other injuries. No fever or discrete pain complaints to warrant further evaluation at this point. She does not appear unwell other than chronic conditions. I did review head CT. Do not see any acute abnormality. TECHNIQUE: CT of the brain / head without intravenous contrast. Multiplanar axial, coronal, and sagittal reformats were reconstructed. FINDINGS: Minimal patient motion artifact. No intracranial hemorrhage. Moderate parenchymal volume loss is similar. No acute or subacute cortically based infarct. Scattered white matter hypodensities may be related to chronic microvascular ischemia. No mass or mass effect. Mildly dilated ventricles appear similar to the previous exam. Largely due to ex vacuo dilatation in the setting of cerebral parenchymal volume loss. No skull fractures. No worrisome focal bone lesion. Chronic right maxillary sinusitis. Bilateral mastoid effusions. IMPRESSION: 1. No intracranial hemorrhage or acute traumatic findings. 2. Bilateral mastoid effusions. No events during time of observation the emergency department. Sleeping/resting comfortably. Able to transition with usual level of ability per report prior to discharge. See patient discharge plan for further discuss Medical Records Medical records reviewed: Yes I reviewed the patient's medical records Discharge Plan Discharge Clinical Impression: Fall, Closed head injury Patient Disposition: Home w/ Parent or Adult Condition: Stable Additional Instructions: Monitor for unusual somnolence, severe headache, repeated vomiting. Prescriptions: No Action lorazepam 0.5 mg tablet 0.5 mg PO DAILY escitalopram oxalate 5 mg tablet 5 mg PO DAILY Follow Up/Referrals: Malathi Cross MD [Primary Care Provider] - Stand Alone Forms: [facility] Info Instructions
== END 2024-06-18 06:52 | disposition home or self-care (01) ==
PROVIDERS: Emergency Provider Family Medicine; PCP Family Medicine
DX: S01.91XA Laceration without foreign body of unspecified part of head, initial encounter (principal); W18.00XA Striking against unspecified object with subsequent fall, initial encounter; E04.1 Nontoxic single thyroid nodule
CPT/HCPCS: 12001; 70450; 99283; 99284

== ENCOUNTER 2024-06-18 06:45 | Outpatient (CLI) | payer MEDICARE, SELFPAY | END 2024-06-18 06:46 | disposition home or self-care (01) | LOC: AMB 06-19 08:46 | PROVIDERS: PCP Family Medicine; Visit Provider Family Medicine | DX: F03.90 Unspecified dementia, unspecified severity, without behavioral disturbance, psychotic disturbance, mood disturbance, and anxiety (principal) | CPT/HCPCS: A0425; A0428 ==

== ENCOUNTER 2024-06-22 08:10 | Outpatient (CLI) | payer MEDICARE, SELFPAY ==
--- OUTSIDE RECORDS SUMMARY | 2024-06-25 02:08 | XMS_ITS | Clinical Summary ---
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 08/22/2008 Active Trcln-5-TUI-EPA-Fish Oil (FISH OIL) 1,000 mg (120 mg-180 [...] (09/22/2022): Added automatically from request for surgery [id number] Dementia without behavioral disturbance 12/28/19 21 Overview [...] stenosis of major cervical arteries. Done at agency. 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
== END 2024-06-22 08:11 | disposition home or self-care (01) ==
LOC: AMB 06-25 02:06
PROVIDERS: PCP Family Medicine; Visit Provider Family Medicine
DX: S09.90XA Unspecified injury of head, initial encounter (principal); W18.30XA Fall on same level, unspecified, initial encounter; Y92.69 Other specified industrial and construction area as the place of occurrence of the external cause
CPT/HCPCS: A0425; A0427

== ENCOUNTER 2024-06-22 08:29 | Emergency (ER) | payer MEDICARE, SELFPAY ==
--- NOTE | 2024-06-22 08:43 | CRLHL7_ITS ---
For Patients: As a result of the Century Cures Act, medical imaging exams and procedure reports are released immediately into your electronic medical record. You may view this report before your referring provider. If you have questions, please contact your health care provider. INDICATION: Fall TECHNIQUE: CT head without contrast. COMPARISON: Head CT 06/18/2024 FINDINGS: CSF spaces: Within normal limits for age. Brain parenchyma: The pat-white differentiation is normal. No sign of mass, hemorrhage, or midline shift. Small low density in the deep white matter. Skull base and calvarium: Opacified right maxillary sinus with bony sclerosis. Bilateral mastoid fluid. The visualized orbits are grossly unremarkable. No skull fractures. Atherosclerosis. Left periorbital scalp laceration. IMPRESSION: 1. Left periorbital scalp laceration without evidence of calvarial fracture or intracranial bleed. 2. Nonspecific white matter disease, likely microangiopathy. 3. Chronic right maxillary sinusitis with bilateral mastoid effusions. Please note that all CT scans at this facility use dose modulation, iterative reconstruction, and/or weight-based dosing when appropriate to reduce radiation dose to as low as reasonably achievable. Dictated by Didier Landrum MD @ 06/22/2024 9:44:35 AM (Electronically Signed)
--- NOTE | 2024-06-22 08:43 | CRLHL7_ITS ---
For Patients: As a result of the Cures Act, medical imaging exams and procedure reports are released immediately into your electronic medical record. You may view this report before your referring provider. If you have questions, please contact your health care provider. INDICATION: Fall TECHNIQUE: CT cervical spine without contrast. COMPARISON: Cervical spine CT 04/25/2023 FINDINGS: Vertebrae: No evidence of cervical spine fracture. Sclerotic T1 lesion redemonstrated, no change. Discs and facet joints: Facet hypertrophy C2-3 without significant stenosis. Posterior osteophytes and facet hypertrophy causing moderate to severe foraminal stenosis on the left at C3-4. Facet hypertrophy and posterior osteophytes at C4-5 causing mild bilateral foraminal stenosis. Small posterior osteophytes C5-6 causing mild bilateral foraminal stenosis. Facet hypertrophy at C6-7 and C7-T1 without significant stenosis. 1-2 millimeter anterolisthesis. Extraspinal findings: Bilateral mastoid effusions. Right lobe thyroid hypodense nodule measuring 13 millimeters. Atherosclerosis. IMPRESSION: 1. Multilevel degenerative changes cervical spine without evidence of cervical spine fracture. 2. Hypodense right lobe thyroid nodule measuring 13 millimeters. This is incompletely included on the prior examination and size comparison can not be made. Suggest follow-up outpatient thyroid ultrasound for further characterization. Please note that all CT scans at this facility use dose modulation, iterative reconstruction, and/or weight-based dosing when appropriate to reduce radiation dose to as low as reasonably achievable. Dictated by Didier Landrum MD @ 06/22/2024 9:49:48 AM (Electronically Signed)
--- NOTE | 2024-06-22 08:44 | CRLHL7_ITS ---
For Patients: As a result of the Century Cures Act, medical imaging exams and procedure reports are released immediately into your electronic medical record. You may view this report before your referring provider. If you have questions, please contact your health care provider. Indication: Fall. Technique: One view(s) of the pelvis. Comparison: None available. Findings: Osseous demineralization. No displaced fracture is identified. Hip alignment is anatomic on AP view. No widening of the sacroiliac joints or pubic symphysis. Sacrum is partially obscured by bowel gas. Lower lumbar degenerative disc disease and facet arthropathy. Amorphous calcifications lateral to the right proximal femur measuring 3.2 cm in length, possibly degenerative versus hydroxyapatite deposition. No underlying osseous destruction. Impression: No displaced fracture identified. Dictated by Palmira Sanchez MD @ 06/22/2024 9:41:13 AM (Electronically Signed)
[2024-06-22 08:47] VITALS: BP 169/81; PULSE 67; RESP 16; TEMP 36.6; O2SAT 97; BMI 24.0
--- NOTE | 2024-06-22 08:47 | ED.GENADULT ---
HPI - General Adult General Chief complaint: Fall/Minor Trauma Stated complaint: Fall Time Seen by Provider: 06/22/24 08:43 History of Present Illness HPI narrative: Patient is an 83 year white female who lives in a memory care unit, she apparently was found on the ground she fell. I do not believe anyone witnessed her fall. She is brought in by EMS. She has got a significant history of dementia, is somewhat combative, is agitated easily. The patient has a small abrasion/laceration on her left temporal area. She has been in her usual mental state. She also moans and cries out whenever any part of her body is touched. Specifically however she has complained about her left hip area. When she has her hip moves she seems more agitated by my exam. The patient is moving all extremities. The family was consulted and wanted her ?checked out?. The patient is unable to convey any medical information. Her chart was reviewed. Related Data Home Medications ?Medication ?Instructions ?Recorded ?Confirmed escitalopram oxalate 5 mg tablet 5 mg PO DAILY 06/18/24 06/18/24 lorazepam 0.5 mg tablet 0.5 mg PO DAILY 06/18/24 06/18/24 Allergies Allergy/AdvReac Type Severity Reaction Status Date / Time adhesive tape AdvReac Verified 06/18/24 04:44 amoxicillin [From Augmentin] AdvReac Verified 06/18/24 04:44 atorvastatin AdvReac Verified 06/18/24 04:44 clavulanic acid AdvReac Verified 06/18/24 04:44 [From Augmentin] glucosamine AdvReac Verified 06/18/24 04:44 latex AdvReac Verified 06/18/24 04:44 oxycodone AdvReac Verified 06/18/24 04:44 Sulfa (Sulfonamide AdvReac Verified 06/18/24 04:44 Antibiotics) Review of Systems Status of ROS: Reports: unobtainable due to mental status PFSH PFS Medical History Hypothyroidism, unspecified ?E03.9 - Hypothyroidism, unspecified (ICD-10) Hyperlipidemia, unspecified ?E78.5 - Hyperlipidemia, unspecified (ICD-10) Malignant neoplasm of unspecified site of unspecified female breast ?C50.919 - Malignant neoplasm of unspecified site of unspecified female breast (ICD-10) Personal history of malignant neoplasm of bladder ?Z85.51 - Personal history of malignant neoplasm of bladder (ICD-10) Polyneuropathy, unspecified ?G62.9 - Polyneuropathy, unspecified (ICD-10) Diverticulosis of intestine, part unspecified, without perforation or abscess without bleeding ?K57.90 - Diverticulosis of intestine, part unspecified, without perforation or abscess without bleeding (ICD-10) Anxiety disorder, unspecified ?F41.9 - Anxiety disorder, unspecified (ICD-10) Personal history of transient ischemic attack (TIA), and cerebral infarction without residual deficits ?Z86.73 - Personal history of transient ischemic attack (TIA), and cerebral infarction without residual deficits (ICD-10) Unspecified dementia, unspecified severity, without behavioral disturbance, psychotic disturbance, mood disturbance, and anxiety ?F03.90 - Unspecified dementia, unspecified severity, without behavioral disturbance, psychotic disturbance, mood disturbance, and anxiety (ICD-10) Social History Smoking Status: Never smoker Do you use any of these nicotine containing products: None Second hand tobacco smoke exposure: No How often do you have a drink containing alcohol: 4 or more times a week How many standard drinks containing alcohol do you have on a typical day: 1 or 2 How often do you have six or more drinks on one occasion: Never AUDIT-C Alcohol total score: 4 Non-prescribed substance use: denies use service: No Exam Narrative: Exam Narrative: Objective: Patient is arousable, speaks in words, axis agitated with any examination. HEENT shows a small circular laceration just to the left temporal area. Does not appear deep, no palpable step-off. It is oozing blood slightly, but it is controlled with the pressure. No facial asymmetry noted Neck she appears to have no midline tenderness Back exam is unremarkable no bruising or ecchymoses Chest abdomen unremarkable Pulses regular Chest are cardiac exam shows a rate and rhythm regular without extremity with 2/6 systolic ejection murmur Abdomen benign Pelvis stable no palpable step-offs With flexion extension of either hip she cries out. Extremities show no gross deformity no bruising. Const: Vital Signs, click to edit/add: Vital Signs - 24 hr 06/22/24 08:47 Temperature 97.9 F Pulse Rate [Pulse Oximeter] 67 Respiratory Rate 16 Blood Pressure [Ri ght Upper Arm] 169/81 H Pulse Oximetry 97 Oxygen Delivery Me thod Room Air Course Vital Signs Vital signs: Initial Vital Signs Temperature 97.9 F 06/22/24 08:47 Temperature Source Temporal Artery Scan 06/22/24 08:47 Pulse Rate 67 06/22/24 08:47 Respiratory Rate 16 06/22/24 08:47 Blood Pressure 169/81 H 06/22/24 08:47 Blood Pressure Mean 110 H 06/22/24 08:47 Pulse Oximetry 97 06/22/24 08:47 Oxygen Delivery Method Room Air 06/22/24 08:47 Vital Signs Temperature 97.9 F 06/22/24 08:47 Pulse Rate 67 06/22/24 08:47 Respiratory Rate 16 06/22/24 08:47 Blood Pressure 169/81 H 06/22/24 08:47 Pulse Oximetry 97 06/22/24 08:47 Oxygen Delivery Method Room Air 06/22/24 08:47 Temperature 97.9 F 06/22/24 08:47 Pulse Rate 67 06/22/24 08:47 Respiratory Rate 16 06/22/24 08:47 Blood Pressure 169/81 H 06/22/24 08:47 Pulse Oximetry 97 06/22/24 08:47 Oxygen Delivery Method Room Air 06/22/24 08:47 Medications Administered Medications: Discontinued Medications Generic Name Dose Route Start Last Admin Trade Name Freq PRN Reason Stop Dose Admin Diphtheria/Tetanus/Acell Pertussis 0.5 ml 06/22/24 08:45 06/22/24 09:44 Tetanus/Diphth/Pertussis 0.5 Ml Syringe IM 06/22/24 08:46 Not Given .ONCE ONE Medical Decision Making MDM Narrative Medical decision making narrative: 83-year-old white female with severe dementia in a memory care unit with a fall. There is a left temporal last her radiation. This will either need Dermabond or sutures. Will get a head CT and neck CT as well as a pelvic x-ray and a CBC and Chem profile to start. I think it be reasonable to do these studies disposition pending their findings. Given this was acute episode it does not appear to be neurologic deficit or other cardiac issue. She has a regular rate and rhythm. She has no code status listed on her profile from [facility]. 9:27 a.m.: Procedure after sterile scrub with Hibiclens, the wound was injected 1% xylocaine without epinephrine, the small 3 cm in extremity 3 5 mm circular laceration her left temporal area was closed with 3-0 simple out that sutures good skin edge approximation good hemostasis this was done x2 sutures. Suture removal should be in 7 days. She is up-to-date on tetanus so this will not be given. Addendum 9:50 a.m.: The patient had her laceration closed with 2 sutures, her head CT shows chronic changes, neck CT chronic changes no acute findings, she does have some thyroid abnormality that could be followed up with an ultrasound. Patient this time by my read has a negative pelvic x-ray. At this time I think we can allow her to go back home continue her medications, light activity that is normal for her, and diet as tolerated. Would recommend follow-up ultrasound of her thyroid at the discretion of her primary care provider. Lab Data Labs: Lab Results 06/22/24 Range/Units 09:30 WBC 5.98 (4.50-11.00) K/uL RBC 4.28 (4.00-5.20) m/uL Hgb 13.7 (12.0-16.0) gm/dL Hct 42.3 (33.0-51.0) % MCV 99 (80-100) fL MCH 32 (26-34) pg MCHC 32 (32-36) gm/dL RDW Coeff of Mario 13.4 (11.5-15.5) % Plt Count 139 L (140-440) K/uL Neut % (Auto) 51.7 (42.0-72.0) % Lymph % (Auto) 37.1 (20-44) % [place] % (Auto) 8.5 (0.0-11.0) % Eos % (Auto) 1.7 (0.0-7.0) % Baso % (Auto) 0.8 (0.0-3.0) % Neut # (Auto) 3.09 (1.7-7.0) K/uL Lymph # (Auto) 2.22 (0.90-2.90) K/uL [place] # (Auto) 0.50 (0.00-0.90) K/UL Eos # (Auto) 0.10 (0.00-0.50) K/uL Baso # (Auto) 0.05 (0.00-0.30) K/uL Abs Immat Gran (auto) 0.01 (0.00-0.30) K/uL Imm/Tot Granulo (auto) 0.2 % Sodium 141 (135-149) mmol/L Potassium 4.6 (3.6-5.1) mmol/L Chloride 108 (96-114) mmol/L Carbon Dioxide 29 (20-32) mmol/L Anion Gap 4 L (7-15) mEq/L BUN 22 (7-30) mg/dL Creatinine 1.1 (0.5-1.5) mg/dL Estimated Creat Clear 32.88 Estimated GFR 50 ml/min Glucose 88 (60-115) mg/dL Calcium 9.3 (8.4-10.6) mg/dL Discharge Plan Discharge Clinical Impression: Fall, Laceration, Thyroid nodule Patient Disposition: Home w/ Parent or Adult Condition: Improved Additional Instructions: Watch for redness at the laceration site, suture removal in 1 week. Resume usual medications. Would recommend discussing code status with family. Thyroid nodule could be followed up with an ultrasound per Radiology if desired by the primary care provider in Family. Activity Level: Light activity Discharge Diet: Regular Prescriptions: No Action lorazepam 0.5 mg tablet 0.5 mg PO DAILY escitalopram oxalate 5 mg tablet 5 mg PO DAILY Follow Up/Referrals: Malathi Cross MD [Primary Care Provider] - Stand Alone Forms: MyHealth Info Instructions
--- OUTSIDE RECORDS SUMMARY | 2024-06-22 08:48 | XMS_ITS | Clinical Summary ---
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 08/22/2008 Active Cazeq-6-HNS-EPA-Fish Oil (FISH OIL) 1,000 mg (120 mg-180 [...] (09/22/2022): Added automatically from request for surgery [id number] Dementia without behavioral disturbance 12/28/19 21 Overview [...] stenosis of major cervical arteries. Done at [facility]. Transient ischemic attack 06/01/2014 Overview (09/22/2022): 2014, takes plavix Unspecified hypothyroidism 10/06/2012 Sleep disorder 09/27/2010 Malignant neoplasm of breast (female), unspecifi ed site 11/12/2007 Overview (11/12/2007): left breast, infiltrating lobular carcinoma, ER +, [place] -, S/P left simple mastectomy 04/2007 on [...] PF (Flu Clinic Only) 07/10/2017 COVID-19 vaccine (Nautal NTOdysii 30mcg/0.3mL) PF, MDV 12/03/2020,11/07/2020 DTaP 05/14/2006 Influenza [...] Health Maintenance Due Date Last Done Comments Medicare Wellness for age 65+ 2004 Zoster (shingles) series for age 50+ (1 of 2) 02/07/2009 12/13/2008 RSV vaccine for adults or (1 - 1-dose 75+ series) 2014 BMI (ht and wt on same day) [...] Documents on File Type Date Recorded 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
[2024-06-22 09:43] LABS: Basophils Absolute Auto 0.05 K/uL (0.00-0.30); Basophils Percent Auto 0.8 % (0.0-3.0); Eosinophils Percent Auto 1.7 % (0.0-7.0); Hematocrit 42.3 % (33.0-51.0); Hemoglobin* 13.7 gm/dL (12.0-16.0); Immature Granulocytes Abs Auto 0.01 K/uL (0.00-0.30); Immature Granulocytes Pct Auto 0.2 %; Lymphocytes Absolute Auto 2.22 K/uL (0.90-2.90); Lymphocytes Percent Auto 37.1 % (20-44); Mean Corpuscular HGB Conc 32 gm/dL (32-36); Mean Corpuscular Hemoglobin 32 pg (26-34); Mean Corpuscular Volume 99 fL (80-100); Monocytes Percent Auto 8.5 % (0.0-11.0); Neutrophils Absolute Auto 3.09 K/uL (1.7-7.0); Neutrophils Percent Auto 51.7 % (42.0-72.0); Platelet Count* 139 K/uL (140-440); RDW Coefficient of Variation % 13.4 % (11.5-15.5); Red Blood Count 4.28 m/uL (4.00-5.20); White Blood Count* 5.98 K/uL (4.50-11.00)
[2024-06-22 09:44] LABS: Slide Review Reflex No
[2024-06-22 09:48] LABS: Chloride* 108 mmol/L (96-114)
[2024-06-22 09:49] LABS: Potassium* 4.6 mmol/L (3.6-5.1); Sodium* 141 mmol/L (135-149)
[2024-06-22 09:52] LABS: Anion Gap 4 mEq/L (7-15); Blood Urea Nitrogen* 22 mg/dL (7-30); Carbon Dioxide* 29 mmol/L (20-32); Creatinine* 1.1 mg/dL (0.5-1.5); Est. Creatinine Clearance* 32.88; Estimated Glomerular Filt Rate 50 ml/min; Glucose* 88 mg/dL (60-115)
[2024-06-22 09:53] LABS: Calcium* 9.3 mg/dL (8.4-10.6)
--- NOTE | 2024-06-22 09:58 | ED.NURSE ---
Daughter and POA contacted by telephone and review of results and discharge information where given. Patient to discharge back to facility via EMS.
--- NOTE | 2024-06-22 10:20 | ED.NURSE ---
RN to RN report called into [facility] and results and follow up care discussed.
--- NOTE | 2024-06-22 12:46 | ED.NURSE ---
Patient assisted to eat applesauce, kimberly crackers and juice.
== END 2024-06-22 12:45 | disposition home or self-care (01) ==
PROVIDERS: Emergency Provider Family Medicine; PCP Family Medicine
DX: S01.91XA Laceration without foreign body of unspecified part of head, initial encounter (principal); W01.10XA Fall on same level from slipping, tripping and stumbling with subsequent striking against unspecified object, initial encounter
CPT/HCPCS: 12002; 36415; 70450; 72125; 72170; 80048; 85025; 99284

== ENCOUNTER 2024-06-22 12:28 | Outpatient (CLI) | payer MEDICARE, SELFPAY ==
--- OUTSIDE RECORDS SUMMARY | 2024-07-06 12:41 | XMS_ITS | Clinical Summary ---
Author Organization [facility] Address [place], [place] [address] Care Team Providers Care Drum Tester Name Role Phone Unavailable Primary Care Provider [...] Take 1 tablet by mouth. 08/22/2008 Active Bxehw-5-JWA-EPA-Fish Oil (FISH OIL) 1,000 mg (120 mg-180 [...] (09/22/2022): Added automatically from request for surgery [id number] Dementia without behavioral disturbance 12/28/19 21 Overview [...] stenosis of major cervical arteries. Done at [facility]. 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
== END 2024-06-22 12:29 | disposition home or self-care (01) ==
LOC: AMB 07-06 12:40
PROVIDERS: PCP Family Medicine; Visit Provider Family Medicine
DX: F03.90 Unspecified dementia, unspecified severity, without behavioral disturbance, psychotic disturbance, mood disturbance, and anxiety (principal)
CPT/HCPCS: A0425; A0428

== ENCOUNTER 2024-07-12 02:14 | Outpatient (CLI) | payer MEDICARE, SELFPAY ==
--- OUTSIDE RECORDS SUMMARY | 2024-07-16 07:08 | XMS_ITS | Clinical Summary ---
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 08/22/2008 Active Gpjcd-9-TEW-EPA-Fish Oil (FISH OIL) 1,000 mg (120 mg-180 [...] (09/22/2022): Added automatically from request for surgery [id number] Dementia without behavioral disturbance 12/28/19 21 Overview [...] stenosis of major cervical arteries. Done at [facility]. 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
== END 2024-07-12 02:15 | disposition home or self-care (01) ==
LOC: AMB 07-16 07:06
PROVIDERS: PCP Family Medicine; Visit Provider Emergency Medicine
DX: M25.552 Pain in left hip (principal)
CPT/HCPCS: A0425; A0427

== ENCOUNTER 2024-07-12 02:41 | Emergency (ER) | payer MEDICARE, SELFPAY ==
--- NOTE | 2024-07-12 02:46 | CRLHL7_ITS ---
For Patients: As a result of the Century Cures Act, medical imaging exams and procedure reports are released immediately into your electronic medical record. You may view this report before your referring provider. If you have questions, please contact your health care provider. INDICATION: Trauma and pain. TECHNIQUE: Pelvis 1 view. COMPARISON: 06/22/2024. FINDINGS: No acute fractures or malalignment. Mild bilateral hip degenerative changes. Amorphous calcification adjacent to the proximal right femur, unchanged. IMPRESSION: No acute osseous abnormality. Dictated by Abelardo Parson MD @ 07/12/2024 3:10:24 AM (Electronically Signed)
[2024-07-12 02:50] VITALS: BP 165/91; PULSE 83; RESP 16; TEMP 36.2; O2SAT 94
[2024-07-12] MEDS: HYDROmorphone 0.5 mg/0.5 ml inj IVP (02:51)
--- NOTE | 2024-07-12 03:00 | CRLHL7_ITS ---
For Patients: As a result of the Century Cures Act, medical imaging exams and procedure reports are released immediately into your electronic medical record. You may view this report before your referring provider. If you have questions, please contact your health care provider. INDICATION: Trauma and pain. TECHNIQUE: CT left hip without contrast. COMPARISON: Pelvic radiograph 07/12/2024. FINDINGS: Decreased bone mineralization. No acute fracture or dislocation. Mild degenerative changes of the left hip, SI joint, and pubic symphysis. Left lateral hip hematoma measuring approximally 5.1 x 5.0 x 6.6 cm. Colonic diverticulosis. Scattered atherosclerotic calcifications. IMPRESSION: 1. No acute osseous abnormality. 2. Left lateral hip hematoma. Please note that all CT scans at this facility use dose modulation, iterative reconstruction, and/or weight-based dosing when appropriate to reduce radiation dose to as low as reasonably achievable. Dictated by Abelardo Parosn MD @ 07/12/2024 3:45:37 AM (Electronically Signed)
--- NOTE | 2024-07-12 03:22 | ED.GENADULT ---
HPI - General Adult General Date Seen: 07/12/24 Chief complaint: Extremity Pain/Injury, Lower Stated complaint: Hip dislocation Time Seen by Provider: 07/12/24 02:46 Source: EMS, RN notes reviewed and old records reviewed Mode of arrival: EMS Limitations: other History of Present Illness HPI narrative: Patient is an 83-year-old woman brought in by EMS from [facility]. Review of prior records shows that she was seen here after a fall on June 22, at that time had complained or seem to be having pain in her left hip, had a laceration on her forehead which was repaired. She does have pretty severe dementia, is not able to provide any meaningful history, and on the was noted to seem to have pain wherever she was touched. Circumstances are similar tonight. EMS reported a hip dislocation, but also noted that she does not have a history of hip replacement and there was no reported trauma. According to staff at [facility] they had checked on her at some point during the day, she had been sitting on her couch. She was checked at 11:00 p.m. and reportedly was okay but when they went in at 3:00 a.m. to check on her and get her to the bathroom she seemed to be having pain in her hip. Medics felt that it looked dislocated. No reported falls today. Medications reviewed, she is not anticoagulated. Related Data Home Medications ?Medication ?Instructions ?Recorded ?Confirmed escitalopram oxalate 5 mg tablet 5 mg PO DAILY 06/18/24 06/18/24 lorazepam 0.5 mg tablet 0.5 mg PO DAILY 06/18/24 06/18/24 Allergies Allergy/AdvReac Type Severity Reaction Status Date / Time adhesive tape AdvReac Verified 06/18/24 04:44 amoxicillin [From Augmentin] AdvReac Verified 06/18/24 04:44 atorvastatin AdvReac Verified 06/18/24 04:44 clavulanic acid AdvReac Verified 06/18/24 04:44 [From Augmentin] glucosamine AdvReac Verified 06/18/24 04:44 latex AdvReac Verified 06/18/24 04:44 oxycodone AdvReac Verified 06/18/24 04:44 Sulfa (Sulfonamide AdvReac Verified 06/18/24 04:44 Antibiotics) Review of Systems Status of ROS: Reports: unobtainable due to medical condition PFSH PFSH Medical History Hypothyroidism, unspecified ?E03.9 - Hypothyroidism, unspecified (ICD-10) Hyperlipidemia, unspecified ?E78.5 - Hyperlipidemia, unspecified (ICD-10) Malignant neoplasm of unspecified site of unspecified female breast ?C50.919 - Malignant neoplasm of unspecified site of unspecified female breast (ICD-10) Personal history of malignant neoplasm of bladder ?Z85.51 - Personal history of malignant neoplasm of bladder (ICD-10) Polyneuropathy, unspecified ?G62.9 - Polyneuropathy, unspecified (ICD-10) Diverticulosis of intestine, part unspecified, without perforation or abscess without bleeding ?K57.90 - Diverticulosis of intestine, part unspecified, without perforation or abscess without bleeding (ICD-10) Anxiety disorder, unspecified ?F41.9 - Anxiety disorder, unspecified (ICD-10) Personal history of transient ischemic attack (TIA), and cerebral infarction without residual deficits ?Z86.73 - Personal history of transient ischemic attack (TIA), and cerebral infarction without residual deficits (ICD-10) Unspecified dementia, unspecified severity, without behavioral disturbance, psychotic disturbance, mood disturbance, and anxiety ?F03.90 - Unspecified dementia, unspecified severity, without behavioral disturbance, psychotic disturbance, mood disturbance, and anxiety (ICD-10) Social History Smoking Status: Never smoker Do you use any of these nicotine containing products: None Second hand tobacco smoke exposure: No How often do you have a drink containing alcohol: 4 or more times a week How many standard drinks containing alcohol do you have on a typical day: 1 or 2 How often do you have six or more drinks on one occasion: Never AUDIT-C Alcohol total score: 4 Non-prescribed substance use: denies use service: No Exam Narrative: Exam Narrative: Vital signs as noted above. In general, an alert, nontoxic elderly woman. Head: Normocephalic, atraumatic. Eyes: Pupils are equal reactive. Extraocular movements are full. Conjunctivae are normal. ENT: Mucous membranes are moist. Throat is normal. Neck: Supple without lymphadenopathy. Heart: Regular rate and rhythm. No murmur or rub. Lungs: Clear bilaterally. No increased work of breathing, crackles or wheezes. Abdomen: Soft and nontender. No organomegaly. Extremities: Both hips are slightly flexed, but neither is abducted or adducted, nor rotated. She has pain diffusely through all extremities. There is a hematoma noted on the left lateral hip. This is also tender to palpation. No significant surrounding erythema. Not able to feel dorsalis pedis pulses in either foot. Neurologic: Patient is alert, agitated, reaches out to grab and hit occasionally. Does not follow commands. Affect: Agitated. Skin: Warm and dry. Well perfused. Const: Vital Signs, click to edit/add: Vital Signs - 24 hr 07/12/24 02:50 07/12/24 04:00 Temperature 97.2 F L Pulse Rate 76 Pulse Rate [Pulse Oximeter] 83 Respiratory Rate 16 16 Blood Pressure 115/81 Blood Pressure [Le ft Upper Arm] 165/91 H Pulse Oximetry 94 99 Oxygen Delivery Me thod Room Air Documenting provider has reviewed patient's vital signs: yes Course Course ED Course: Patient received 50 mcg of fentanyl per EMS. I gave her an additional 0.5 mg of Dilaudid anticipating x-rays. We did a pelvis x-ray which by my review was negative, no evidence of dislocation or obvious fracture. I am going to CT her hip just to make sure, it does not sound like she has had any trauma today but given that she is not able to provide any history will simply make sure there is not an occult fracture. I suspect that her pain is coming from this hematoma on the lateral hip. She slept comfortably while in the emergency department. CT scan by my review showed hematoma over the left hip but no evidence of fracture. Final radiology read as follows below. Patient: EMMANUEL LERMA Facility: [facility] . Site : 1940 Study: XRay-Pelvis -07/12/2024 3:07:03 AM Ordering Physician: Rodrigo Avina Final Report: INDICATION: Trauma and pain. TECHNIQUE: Pelvis 1 view. COMPARISON: 06/22/2024. FINDINGS: No acute fractures or malalignment. Mild bilateral hip degenerative changes. Amorphous calcification adjacent to the proximal right femur, unchanged. IMPRESSION: No acute osseous abnormality. Patient: EMMANUEL LERMA Facility: [facility] . Site : 1940 Study: CT-Hip Left W/O-07/12/2024 3:32:21 AM Ordering Physician: Rodrigo Avina Final Report: INDICATION: Trauma and pain. TECHNIQUE: CT left hip without contrast. COMPARISON: Pelvic radiograph 07/12/2024. FINDINGS: Decreased bone mineralization. No acute fracture or dislocation. Mild degenerative changes of the left hip, SI joint, and pubic symphysis. Left lateral hip hematoma measuring approximally 5.1 x 5.0 x 6.6 cm. Colonic diverticulosis. Scattered atherosclerotic calcifications. IMPRESSION: 1. No acute osseous abnormality. 2. Left lateral hip hematoma. Please note that all CT scans at this facility use dose modulation, iterative reconstruction, and/or weight-based dosing when appropriate to reduce radiation dose to as low as reasonably achievable. Dictated by Abelardo Parson MD @ 07/12/2024 3:45:37 AM I think she can be safely discharged home, ice, Tylenol. No evidence of bony injury tonight, hematoma should gradually improve over the next couple of weeks but if worsening or develops redness fever etcetera should be seen again. Vital Signs Vital signs: Initial Vital Signs Temperature 97.2 F L 07/12/24 02:50 Temperature Source Temporal Artery Scan 07/12/24 02:50 Pulse Rate 83 07/12/24 02:50 Pulse Rhythm Regular 07/12/24 02:50 Respiratory Rate 16 07/12/24 02:50 Blood Pressure 165/91 H 07/12/24 02:50 Blood Pressure Mean 115 H 07/12/24 02:50 Blood Pressure Position Semi-Fowlers 07/12/24 02:50 Pulse Oximetry 94 07/12/24 02:50 Oxygen Delivery Method Room Air 07/12/24 02:50 Vital Signs Temperature 97.2 F L 07/12/24 02:50 Pulse Rate 83 07/12/24 02:50 Respiratory Rate 16 07/12/24 02:50 Blood Pressure 165/91 H 07/12/24 02:50 Pulse Oximetry 94 07/12/24 02:50 Oxygen Delivery Method Room Air 07/12/24 02:50 Temperature 97.2 F L 07/12/24 02:50 Pulse Rate 76 07/12/24 04:00 Respiratory Rate 16 07/12/24 04:00 Blood Pressure 115/81 07/12/24 04:00 Pulse Oximetry 99 07/12/24 04:00 Oxygen Delivery Method Room Air 07/12/24 02:50 Medications Administered Medications: Discontinued Medications Generic Name Dose Route Start Last Admin Trade Name Jenny PRN Reason Stop Dose Admin Hydromorphone HCl 0.5 mg 07/12/24 02:47 07/12/24 02:51 Hydromorphone 0.5 Mg/0.5 Ml Inj IVP 07/12/24 02:48 0.5 mg ONCE ONE Administration Discharge Plan Discharge Clinical Impression: Hematoma of left hip Patient Disposition: Xfer SNF Condition: Stable Instructions: Hip Contusion (ED) Additional Instructions: Tylenol 1000 mg 3 times daily as needed. Ice may be helpful as well. No evidence of fracture or dislocation on CT scan today. Prescriptions: No Action lorazepam 0.5 mg tablet 0.5 mg PO DAILY escitalopram oxalate 5 mg tablet 5 mg PO DAILY Stand Alone Forms: SupplyFramee[employer] Info Instructions
[2024-07-12 04:00] VITALS: BP 115/81; PULSE 76; RESP 16; O2SAT 99
--- OUTSIDE RECORDS SUMMARY | 2024-07-12 04:16 | XMS_ITS | Clinical Summary ---
Author Organization [facility] Address [place], [place] [address] Care Team Providers Care Configuration Management Analyst Name Role Phone Unavailable Primary Care [...] Take 1 tablet by mouth. 08/22/2008 Active Ylisk-0-PZY-EPA-Fish Oil (FISH OIL) 1,000 mg (120 mg-180 [...] (09/22/2022): Added automatically from request for surgery [id number] Dementia without behavioral disturbance 12/28/19 21 Overview [...] stenosis of major cervical arteries. Done at [facility]. 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
== END 2024-07-21 11:55 ==
PROVIDERS: Emergency Provider Emergency Medicine; PCP Family Medicine
DX: S70.02XA Contusion of left hip, initial encounter (principal)
CPT/HCPCS: 72170; 73700; 96374; 99284; J1171

== ENCOUNTER 2024-07-12 04:59 | Outpatient (CLI) | payer MEDICARE, SELFPAY ==
--- OUTSIDE RECORDS SUMMARY | 2024-07-28 13:09 | XMS_ITS | Clinical Summary ---
Author Organization [facility] Address [place], [place] [address] Care Team Providers Care Can Line Operator Name Role Phone Unavailable Primary Care [...] Take 1 tablet by mouth. 08/22/2008 Active Npfrd-2-LDW-EPA-Fish Oil (FISH OIL) 1,000 mg (120 mg-180 [...] (09/22/2022): Added automatically from request for surgery [id number] Dementia without behavioral disturbance 12/28/19 21 Overview [...] stenosis of major cervical arteries. Done at [place]. Transient ischemic attack 06/01/2014 Overview (09/22/2022): 2014, takes plavix Unspecified hypothyroidism 10/06/2012 Sleep disorder 09/27/2010 Malignant neoplasm of breast (female), unspecifi ed site 11/12/2007 Overview (11/12/2007): left breast, infiltrating lobular carcinoma, ER +, [place] -, S/P left simple mastectomy 04/2007 on [...] PF (Flu Clinic Only) 07/10/2017 COVID-19 vaccine ([facility] [employer] 30mcg/0.3mL) PF, MDV 12/03/2020,11/07/2020 DTaP 05/14/2006 Influenza [...] Documents on File Type Date Recorded Patient Nutrition Director Expl anation POLST 04/15/2023
== END 2024-07-12 05:00 | disposition home or self-care (01) ==
LOC: AMB 07-28 13:04
PROVIDERS: PCP Family Medicine; Visit Provider Family Medicine
DX: F03.90 Unspecified dementia, unspecified severity, without behavioral disturbance, psychotic disturbance, mood disturbance, and anxiety (principal)
CPT/HCPCS: A0425; A0428

== ENCOUNTER 2024-07-22 21:18 | Outpatient (CLI) | payer MEDICARE, SELFPAY ==
--- OUTSIDE RECORDS SUMMARY | 2024-07-27 19:11 | XMS_ITS | Clinical Summary ---
Author Organization [facility] Address [place], [place] [address] Care Team Providers Care Rehabilitation Tech Name Role Phone Unavailable Primary Care Provider [...] Take 1 tablet by mouth. 08/22/2008 Active Ohawz-3-ZCJ-EPA-Fish Oil (FISH OIL) 1,000 mg (120 mg-180 [...] (09/22/2022): Added automatically from request for surgery [id number] Dementia without behavioral disturbance 12/28/19 21 Overview [...] stenosis of major cervical arteries. Done at [place]. 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
== END 2024-07-22 21:19 | disposition home or self-care (01) ==
PROVIDERS: PCP Family Medicine; Visit Provider Family Medicine
DX: F03.90 Unspecified dementia, unspecified severity, without behavioral disturbance, psychotic disturbance, mood disturbance, and anxiety (principal)
CPT/HCPCS: A0998

== ENCOUNTER 2024-07-22 23:03 | Outpatient (CLI) | payer MEDICARE, SELFPAY | END 2024-07-22 23:04 | disposition home or self-care (01) | LOC: AMB 07-27 19:17 | PROVIDERS: PCP Family Medicine; Visit Provider Family Medicine | DX: S09.90XA Unspecified injury of head, initial encounter (principal); W18.30XA Fall on same level, unspecified, initial encounter; Y92.10 Unspecified residential institution as the place of occurrence of the external cause | CPT/HCPCS: A0425; A0427 ==

== ENCOUNTER 2024-07-22 23:16 | Emergency (ER) | payer MEDICARE, SELFPAY ==
[2024-07-22 23:29] VITALS: BP 154/76; PULSE 76; RESP 16; TEMP 36.4; O2SAT 99
--- NOTE | 2024-07-23 00:14 | ED_ITS ---
HPI - General Adult General Chief complaint: Fall/Minor Trauma Stated complaint: fall Time Seen by Provider: 07/23/24 00:00 Source: patient and EMS History of Present Illness HPI narrative: 83-year-old female with significant dementia, currently DNR code status and reported that she is planning to initiate hospice care presents to the emergency department with her 2nd fall of the evening. The same EMS crew attended both falls. Both were described as mechanical in nature. Call was canceled after they were able to easily assist patient up and there were no signs of injuries after the 1st fall. For the 2nd fall, it was obvious that the patient had been rearranging the furniture in her assisted living apartment by herself. Rationale is unclear. She was found down by staff, slight bleeding from the back of the head noted. Was not complaining of other areas of injury. She does not take any anticoagulants. No recent fever or illness reported. She does come with paperwork from her assisted living facility. Stable vital signs over the last few days. No recent changes in medications. She does take lorazepam but this is not new. She has an ongoing hematoma of the left outer hip area. Recent CT has been performed. No other areas of reported injury from the EMS team. Past medical history is most notable for the dementia. This is the only condition that continues to be managed. Continues to use Lexapro, lorazepam, Tylenol and oxycodone. Nonsmoker. Family contact information reviewed. ROS from patient is unreliable, reports no concerns. This was also reported to EMS. EMS only noting the mild bleeding to the back of the head to us. Related Data Home Medications ?Medication ?Instructions ?Recorded ?Confirmed escitalopram oxalate 5 mg tablet 5 mg PO DAILY 06/18/24 06/18/24 lorazepam 0.5 mg tablet 0.5 mg PO DAILY 06/18/24 06/18/24 Allergies Allergy/AdvReac Type Severity Reaction Status Date / Time adhesive tape AdvReac Verified 06/18/24 04:44 amoxicillin (From Augmentin) AdvReac Verified 06/18/24 04:44 atorvastatin AdvReac Verified 06/18/24 04:44 clavulanic acid (From AdvReac Verified 06/18/24 04:44 Augmentin) glucosamine AdvReac Verified 06/18/24 04:44 latex AdvReac Verified 06/18/24 04:44 oxycodone AdvReac Verified 06/18/24 04:44 Sulfa (Sulfonamide AdvReac Verified 06/18/24 04:44 Antibiotics) [facility] Medical History Hypothyroidism, unspecified ?E03.9 - Hypothyroidism, unspecified (ICD-10) Hyperlipidemia, unspecified ?E78.5 - Hyperlipidemia, unspecified (ICD-10) Malignant neoplasm of unspecified site of unspecified female breast ?C50.919 - Malignant neoplasm of unspecified site of unspecified female breast (ICD-10) Personal history of malignant neoplasm of bladder ?Z85.51 - Personal history of malignant neoplasm of bladder (ICD-10) Polyneuropathy, unspecified ?G62.9 - Polyneuropathy, unspecified (ICD-10) Diverticulosis of intestine, part unspecified, without perforation or abscess without bleeding ?K57.90 - Diverticulosis of intestine, part unspecified, without perforation or abscess without bleeding (ICD-10) Anxiety disorder, unspecified ?F41.9 - Anxiety disorder, unspecified (ICD-10) Personal history of transient ischemic attack (TIA), and cerebral infarction without residual deficits ?Z86.73 - Personal history of transient ischemic attack (TIA), and cerebral infarction without residual deficits (ICD-10) Unspecified dementia, unspecified severity, without behavioral disturbance, psychotic disturbance, mood disturbance, and anxiety ?F03.90 - Unspecified dementia, unspecified severity, without behavioral disturbance, psychotic disturbance, mood disturbance, and anxiety (ICD-10) Social History Smoking Status: Never smoker Do you use any of these nicotine containing products: None Second hand tobacco smoke exposure: No How often do you have a drink containing alcohol: 4 or more times a week How many standard drinks containing alcohol do you have on a typical day: 1 or 2 How often do you have six or more drinks on one occasion: Never AUDIT-C Alcohol total score: 4 Non-prescribed substance use: denies use service: No Exam Const: Vital Signs, click to edit/add: Vital Signs - 24 hr 07/22/24 23:29 Temperature 97.6 F Pulse Rate [Pulse Oximeter] 76 Respiratory Rate 16 Blood Pressure [Ri ght Upper Arm] 154/76 H Pulse Oximetry 99 Oxygen Delivery Me thod Room Air Documenting provider has reviewed patient's vital signs: yes Other: Calm, resting in the bed. Arouses to voice. Will answer simple questions but does not necessarily answer reliably. Oriented to person only. HENMT: Common normals: external nose normal Nose: external nose normal Mouth: oral and palatal mucosa normal Throat: posterior oropharynx normal Other: Small subcentimeter laceration, epidermal depth to the right occipital area. Very slight oozing. No dental injury. Normal tongue. Eye: Common normals: PERRL and EOMs intact bilaterally General eye: normal appearance of both eyes Pupil: PERRL Neck & C-Spine: Common normals: full ROM and no lymphadenopathy Cervical spine: cervical ROM normal; no cervical spine tenderness, no step off deformity and no paracervical muscle tenderness Chest: Common normals: inspection of chest normal and palpation of chest normal Resp: Common normals: normal respiratory effort, no use of accessory muscles and clear to auscultation bilaterally Effort & inspection: able to speak in complete sentences Auscultation: clear to auscultation bilaterally Cardio: Common normals: regular rate, regular rhythm, S1 normal heart sound, S2 normal heart sound and no murmurs Rate: regular rate Rhythm: regular rhythm Heart sounds: S1 normal and S2 normal GI: Common normals: Normal to inspection, nondistended, normoactive bowel sounds present, soft to palpation and no hepatosplenomegaly Palpation: soft and no hepatosplenomegaly Back & Pelvis: Common normals: thoracic and lumbar spine normal to inspection Extremity: Other: Faint bruise to the right ventral ankle area. Old hematoma to the left outer hip area. Pelvis and bony palpation is nontender. Knees normal in appearance with no point tenderness as are ankles and feet. Neuro: Common normals: moves all extremities Psych: Insight: limited Judgement: limited Skin: Narrative: Small laceration on the right occiput, stable appearing known hematoma to left outer hip. Mild bruise to right ankle with no evidence of fracture or deformity. Course Course ED Course: 83-year-old female with fall in assisted living facility, mechanical seeming. Will obtain EKG to ensure no cardiac process. Her vitals are stable. She is not exhibiting any significant signs of pain to palpation. Will remove C- collar. Will give Tylenol and see if she can ambulate. I do not think ext ensive blood work will be beneficial. Since there was no hypoxia, tachypnea, reported pain with palpation or other abnormalities, I do not think skeletal survey, chest x-ray go be beneficial for her. Blood work is unlikely to change the course of treatment in this debilitated, demented patient. The nursing team will clean up the cut on the back of her head. Will plan for Dermabond and attempted ambulation. Reevaluation(s) Time of Reevaluation #1: 02:06 Reevaluation #1: Unfortunately due to other acuity in the ED, we were not able to reassess patient for quite some time. She is sitting upright, will bear weight on her legs. Yells and shouts frequently. She has hit and pinched several staff members. Ultimately, she did allow me to further inspect the wound on her right occiput. It shows a 1.5 cm barely oozing horizontal laceration that she keeps touching and messing with. Procedure: Analisa position. Area was cleansed with soapy tap water, patted dry. Laceration examined with no evidence of foreign body. Into knots, hair on either side of the laceration was pulled taut, twisted and Dermabond was applied. This resulted in good hemostasis and reapproximation. Two total throws. Tolerated as well as any other procedure which was poorly. But calm and resting afterwards. No option for 48 hours. No dressing needed. Okay to use Tylenol as needed for discomfort. Patient adamantly refused EKG, blood work. Additional harm would have come to staff to force this further. Since patient has the energy to fight, yell and attempt to ambulate away, it is thought that she really does meet criteria for stability especially in her advanced dementia condition when she has circling towards hospice status. Any information gained from this is unlikely to benefit her medically or improve her quality of life. Decision was made to withdraw further testing. She will be discharged back to her assisted living. I do agree based on our interaction that she is appropriate for hospice care and comfort treatment only. Vital Signs Vital signs: Initial Vital Signs Temperature 97.6 F 07/22/24 23:29 Temperature Source Temporal Artery Scan 07/22/24 23:29 Pulse Rate 76 07/22/24 23:29 Pulse Rhythm Regular 07/22/24 23:29 Respiratory Rate 16 07/22/24 23:29 Blood Pressure 154/76 H 07/22/24 23:29 Blood Pressure Mean 102 07/22/24 23:29 Blood Pressure Position Supine 07/22/24 23:29 Pulse Oximetry 99 07/22/24 23:29 Oxygen Delivery Method Room Air 07/22/24 23:29 Vital Signs Temperature 97.6 F 07/22/24 23:29 Pulse Rate 76 07/22/24 23:29 Respiratory Rate 16 07/22/24 23:29 Blood Pressure 154/76 H 07/22/24 23:29 Pulse Oximetry 99 07/22/24 23:29 Oxygen Delivery Method Room Air 07/22/24 23:29 Temperature 97.6 F 07/22/24 23:29 Pulse Rate 76 07/22/24 23:29 Respiratory Rate 16 07/22/24 23:29 Blood Pressure 154/76 H 07/22/24 23:29 Pulse Oximetry 99 07/22/24 23:29 Oxygen Delivery Method Room Air 07/22/24 23:29 Medications Administered Medications: Generic Name Dose Route Start Last Admin Trade Name Freq PRN Reason Stop Dose Admin Acetaminophen 650 mg 07/23/24 00:11 07/23/24 01:07 Acetaminophen 325 Mg Tablet PO 07/23/24 00:12 650 mg ONCE ONE Administration Discharge Plan Discharge Clinical Impression: Multiple falls, Minor closed head injury Instructions: Skin Adhesive Care (ED) Additional Instructions: As we discussed, there does not seem to be any major injury from your fall. The small cut on the back of your head was closed using your natural hair and blue in a twisting motion. This is commonly done. The glue will slowly flake off over the next week or 2. Avoid brushing over the area for the next week. After 48 hours, it can be gently washed but do not pick away the hair and glue for at least the next 10 days. You may have mild headache. It is okay to use the Tylenol that is on your medication list for this. Few hit several staff members while you are here. We offered additional workup for your falls which you did not willingly participate or allow. Therefore, these tests were discontinued. If there are further concerns, I would recommend following up with your typical primary care team. Activity Level: Activity as Tolerated Discharge Diet: Regular Prescriptions: No Action lorazepam 0.5 mg tablet 0.5 mg PO DAILY escitalopram oxalate 5 mg tablet 5 mg PO DAILY Follow Up/Referrals: Malathi Cross MD [Primary Care Provider] - Stand Alone Forms: [employer] Info Instructions
--- OUTSIDE RECORDS SUMMARY | 2024-07-23 00:26 | XMS_ITS | Clinical Summary ---
Author Organization [facility] Address [place], [place] [address] Care Team Providers Care Smelter Liner Name Role Phone Unavailable Primary Care Provider [...] Take 1 tablet by mouth. 08/22/2008 Active Qjtmm-2-APT-EPA-Fish Oil (FISH OIL) 1,000 mg (120 mg-180 [...] (09/22/2022): Added automatically from request for surgery [id number] Dementia without behavioral disturbance 12/28/19 21 Overview [...] stenosis of major cervical arteries. Done at [place]. Transient ischemic attack 06/01/2014 Overview (09/22/2022): 2014, takes plavix Unspecified hypothyroidism 10/06/2012 Sleep disorder 09/27/2010 Malignant neoplasm of breast (female), unspecifi ed site 11/12/2007 Overview (11/12/2007): left breast, infiltrating lobular carcinoma, ER +, [place] -, S/P left simple mastectomy 04/2007 on [...] PF (Flu Clinic Only) 07/10/2017 COVID-19 vaccine ([employer] 30mcg/0.3mL) PF, MDV 12/03/2020,11/07/2020 DTaP 05/14/2006 Influenza [...] Documents on File Type Date Recorded Patient Ticket Maker Expl anation POLST 04/15/2023
[2024-07-23] MEDS: ACETAMINOPHEN 325 MG TABLET 650 MG PO (01:07)
[2024-07-23 03:02] VITALS: BP 125/64; PULSE 78; RESP 16; TEMP 36.1; O2SAT 98
== END 2024-07-23 03:03 | disposition home or self-care (01) ==
PROVIDERS: Emergency Provider Family Medicine; PCP Family Medicine
DX: S09.90XA Unspecified injury of head, initial encounter (principal); S01.01XA Laceration without foreign body of scalp, initial encounter; W19.XXXA Unspecified fall, initial encounter
CPT/HCPCS: 12001; 93005; 99283; 99284; A9270

== ENCOUNTER 2024-07-23 02:27 | Outpatient (CLI) | payer MEDICARE, SELFPAY ==
--- OUTSIDE RECORDS SUMMARY | 2024-07-27 19:32 | XMS_ITS | Clinical Summary ---
Author Organization [facility] Address [place], [place] [address] Care Team Providers Care Molder Offbearer Name Role Phone Unavailable Primary Care Provider [...] Take 1 tablet by mouth. 08/22/2008 Active Fjoiy-9-RBU-EPA-Fish Oil (FISH OIL) 1,000 mg (120 mg-180 [...] (09/22/2022): Added automatically from request for surgery [id number] Dementia without behavioral disturbance 12/28/19 21 Overview [...] stenosis of major cervical arteries. Done at [place]. Transient ischemic attack 06/01/2014 Overview (09/22/2022): 2014, takes plavix Unspecified hypothyroidism 10/06/2012 Sleep disorder 09/27/2010 Malignant neoplasm of breast (female), unspecifi ed site 11/12/2007 Overview (11/12/2007): left breast, infiltrating lobular carcinoma, ER +, [place] -, S/P left simple mastectomy 04/2007 on [...] PF (Flu Clinic Only) 07/10/2017 COVID-19 vaccine ([employer] 30mcg/0.3mL) PF, MDV 12/03/2020,11/07/2020 DTaP 05/14/2006 Influenza [...] Documents on File Type Date Recorded Patient Assistant Center Manager Expl anation POLST 04/15/2023
== END 2024-07-23 02:28 | disposition home or self-care (01) ==
LOC: AMB 07-27 19:30
PROVIDERS: PCP Family Medicine; Visit Provider Family Medicine
DX: F03.90 Unspecified dementia, unspecified severity, without behavioral disturbance, psychotic disturbance, mood disturbance, and anxiety (principal)
CPT/HCPCS: A0425; A0426